=== PATIENT | male | born 1945 | race African-American/Black ===

== ENCOUNTER 2018-02-13 14:10 | Inpatient (IN) | payer OTHER ==
[2018-02-13 14:29] VITALS: BMI 25.0
--- NOTE | 2018-02-13 14:57 | PDOC ---
History of Present Illness <Ninoska June - Last Filed: 02/13/18 17:22> - History of Present Illness Initial Comments: 02/13/18 15:15 UPDATE: Do not inform any family member other than daughter Jolly Lara about diagnosis. The family does not know. 72 year old male with a hx of DM, HTN, HCV, PAD, Asthma, HLD presents to the hospital for 2 weeks of generalized weakness, dizziness, R hip pain and decreased appetite. He denies any inciting factors, only reporting that it has been progressively getting worse over the last several days to a point where he is unable to ambulate well. He was recently diagnosed with lung cancer in [place] ([place]) and had an operation to remove the tumor 1-2 years ago (but patient cannot remember exactly), which he was told was "stage 2". He was on chemotherapy which ended around 7-8 months ago. He states that 3 weeks ago, he was restarted on chemotherapy for recurrence of his cancer (unclear if recurred in lung or metastatic elsewhere). Denies chest pain, SOB, nausea, vomiting, diarrhea, fevers, chills. Does endorse a non-productive cough of 3 weeks duration. UPDATE: after speaking to oncologist and daughter, patient has stage 4 lung cancer on immunotherapy and not responding too well. Daughter does not want any family to know the true diagnosis. Last Hgb of patient was 9.8. Patient is not on neupogen. PCP: Dr. Beverly Surgeries: Lung cancer resection (unclear date, 1-2 years ago) Oncologist: Dr. Cox Smoking: currently smoking occasionally Drink: none Drugs: none Allergies: none Jolly Lara (Daughter)'s phone numbers: [phone] (home) and (cell) <Bari Franks - Last Filed: 02/13/18 18:13> - General Chief Complaint: Weakness Stated Complaint: WEAKNESS Past History <Ninoska June - Last Filed: 02/13/18 17:22> - Past Medical History Anemia: No Asthma: Yes Cancer: Yes (lung) Cardiac Disorders: No COPD: No HTN: Yes Liver Disease: Yes (HEP C) - Suicide/Smoking/Psychosocial Hx Smoking Status: Yes Smoking History: Current some day smoker Have you smoked in the past 12 months: Yes Number of Cigarettes Smoked Daily: 6 If you are a former smoker, when did you quit?: trying to quit w/ patch 3 months ago.. not successful Cigars Per Day: 10 Information on smoking cessation initiated: No 'Breaking Loose' booklet given: 08/29/16 Hx Alcohol Use: No Drug/Substance Use Hx: No Substance Use Type: None Hx Substance Use Treatment: No <Bari Franks - Last Filed: 02/13/18 18:13> - Past Medical History Allergies/Adverse Reactions: Allergies Allergy/AdvReac Type Severity Reaction Status Date / Time No Known Allergies Allergy Verified 08/29/16 19:33 Home Medications: Ambulatory Orders Atorvastatin Ca [Lipitor] 20 mg PO HS 02/13/18 Chlorpromazine [Thorazine -] 25 mg PO QID PRN 02/13/18 Clopidogrel Bisulfate [Clopidogrel] 75 mg PO DAILY 02/13/18 Lorazepam 2 mg PO HS PRN 02/13/18 Multivitamin [Poly-Vitamin] 1 each PO DAILY 02/13/18 Naproxen [Naprosyn -] 250 mg PO BID 02/13/18 Tamsulosin HCl 0.4 mg PO DAILY 02/13/18 metFORMIN HCL [Metformin HCl] 500 mg PO BID 02/13/18 Review of Systems - Review of Systems Constitutional: Yes: Loss of Appetite, Weakness, Unexplained wgt Loss. No: Fever Respiratory: Yes: Cough. No: Shortness of Breath Cardiac (ROS): No: Chest Pain ABD/GI: No: Diarrhea, Nausea, Abdominal cramping Musculoskeletal: Yes: Joint Pain <Bari Franks - Last Filed: 02/13/18 18:13> *Physical Exam - Vital Signs Last Vital Signs Temp Pulse Resp BP Pulse Ox 98.7 F 93 H 20 107/62 96 02/13/18 14:26 02/13/18 14:26 02/13/18 14:26 02/13/18 14:02/13/18 14:40 <Ninoska June - Last Filed: 02/13/18 17:22> - Vital Signs Last Vital Signs Temp Pulse Resp BP Pulse Ox 98.7 F 93 H 20 107/62 96 02/13/18 14:26 02/13/18 14:26 02/13/18 14:26 02/13/18 14:26 02/13/18 14:26 - Physical Exam Comments: 02/13/18 15:58 GENERAL: A&Ox3, no acute distress EYES: PERRLA, EOMI ENT: Moist mucus membranes NECK: No JVD LUNGS: CTA, no wheezes HEART: RRR, no murmurs ABDOMEN: Soft, nontender, BS present MUSCULOSKELETAL: No CVA Tenderness EXTREMITIES: 2+ pulses, no edema. NEUROLOGICAL: Cranial nerves II-XII intact. Muscle strength 5/5 bilaterally, sensation intact. <Bari Franks - Last Filed: 02/13/18 18:13> ED Treatment Course - LABORATORY CBC & Chemistry Diagram: 02/13/18 15:15 02/13/18 15:15 - ADDITIONAL ORDERS Additional order review: Laboratory Results 02/13/18 15:15 Sodium 134 L Potassium 3.7 Chloride 99 Carbon Dioxide 29 Anion Gap 6 L BUN 13 Creatinine 0.8 Creat Clearance w eGFR > 60 Random Glucose 129 H Calcium 8.5 Magnesium 1.7 L Total Bilirubin 0.5 D AST 31 D ALT 23 D Alkaline Phosphatase 290 H Total Protein 6.8 Albumin 2.5 L D TSH 1.06 02/13/18 15:15 RBC 3.06 L D MCV 81.0 MCHC 32.3 RDW 18.9 H MPV 6.9 L Neutrophils % 68.2 D Lymphocytes % 16.5 D Monocytes % 12.8 H Eosinophils % 1.1 Basophils % 1.4 <Ninoska June - Last Filed: 02/13/18 17:22> - LABORATORY CBC & Chemistry Diagram: 02/13/18 15:15 02/13/18 15:15 <Bari Franks - Last Filed: 02/13/18 18:13> Medical Decision Making - Medical Decision Making 02/13/18 17:22 stage 4 lung cancer w liver mets on immunotherapy currently -weakness, anemia,requires blood transfusion -case dscussed w his oncologist <Ninoska June - Last Filed: 02/13/18 17:22> - Medical Decision Making 02/13/18 16:52 72 year old male with a hx of DM, HTN, HCV, PAD, Asthma, HLD presents with 3 weeks of weakness, loss of appetite Assessment: differential includes side effects of chemo, anemia, hypothyroid, CT Plan: CBC - new anemia 8.0 CMP UA EKG - NSR Qtc 464 TSH Trop FOBT 02/13/18 17:35 -Called Dr. Alyce Cox, the patient's oncologist at -Was informed that patient and majority of family are UNAWARE of the fact that patient has stage IV multilobar non-small cell lung cancer and is undergoing immunotherapy (not chemotherapy). Patient's last Hgb a couple of weeks ago was 9.8. -called patient's daughter, who is the only family member aware of current situation. Repeated that she does not want rest of family to know. Agreeable to plan for transfusing 1 U PRBCs. Stated that he had an appointment for a PET scan and later lung doctor appointment this week -patient refused fecal occult blood testing -Patient will likely need evaluation as an inpatient and placement at a facility -will admit inpatient -will call daughter and inform her -daughter's phone numbers: [phone] (home) and [phone] (cell) 02/13/18 17:59 -discussed case w/ Dr. Wood -Will admit patient and inform daughter <Bari Franks - Last Filed: 02/13/18 18:13> *DC/Admit/Observation/Transfer <Ninoska June - Last Filed: 02/13/18 17:22> - Discharge Dispostion Decision to Admit order: Yes <Bari Franks - Last Filed: 02/13/18 18:13> Diagnosis at time of Disposition: Weakness
[2018-02-13 16:06] LABS: BASO % 1.4 % (0-2.0); EOS % 1.1 % (0-4.5); HEMATOCRIT 24.8 % (35.4-49); LYMPH % 16.5 % (8-40); MCH 26.2 pg (25.7-33.7); MCHC 32.3 g/dl (32.0-35.9); MEAN PLT VOLUME 6.9 fl (7.5-11.1); MONO % 12.8 % (3.8-10.2); NEUT % 68.2 % (42.8-82.8); PLATELET COUNT 327 K/MM3 (134-434); RBC 3.06 M/mm3 (4.00-5.60); RDW 18.9 % (11.9-15.9); WHITE BLOOD COUNT 5.4 K/mm3 (4.0-10.0)
[2018-02-13 16:17] LABS: ALBUMIN 2.5 g/dl (3.4-5.0); ANION GAP 6 (8-16); BILIRUBIN,TOTAL 0.5 mg/dL (0.2-1.0); BLOOD UREA NITROGEN 13 mg/dL (7-18); CALCIUM 8.5 mg/dL (8.5-10.1); CHLORIDE 99 mmol/L (98-107); CO2 29 mmol/L (21-32); CREATININE 0.8 mg/dL (0.7-1.3); GLUCOSE,RANDOM 129 mg/dL (74-106); MAGNESIUM 1.7 mg/dL (1.8-2.4); POTASSIUM 3.7 mmol/L (3.5-5.1); SGOT/AST 31 U/L (15-37); SODIUM 134 mmol/L (136-145); TOT PROT 6.8 g/dl (6.4-8.2)
--- NOTE | 2018-02-13 16:21 | EKG ---
Test Reason : Blood Pressure : / mmHG Vent. Rate : 087 BPM Atrial Rate : 087 BPM P-R Int : 162 ms QRS Dur : 082 ms QT Int : 386 ms P-R-T Axes : 060 047 063 degrees QTc Int : 464 ms NORMAL SINUS RHYTHM CANNOT RULE OUT ANTERIOR INFARCT , AGE UNDETERMINED ABNORMAL ECG WHEN COMPARED WITH ECG OF 29-AUG-2016 20:06, NONSPECIFIC T WAVE ABNORMALITY NOW EVIDENT IN LATERAL LEADS Confirmed by EDELMIRA WILKES MD ([id number]) on 02/13/2018 4:20:56 PM Referred By: Confirmed By:EDELMIRA WILKES MD
[2018-02-13 16:58] LABS: ALK PHOS 290 U/L (45-117)
[2018-02-13 17:12] LABS: SGPT/ALT 23 U/L (12-78)
--- NOTE | 2018-02-13 17:27 | PDOC ---
Attending Attestation - [facility] HPI: The patient is a year old male, with a significant past medical history of DM, HTN, HCV, PAD, Asthma, HLD, and dementia, who presents to the emergency department with, 2 weeks of generalized weakness, decreased appetite, and inability to walk. The patient was diagnosed with lung cancer at [place] in [place]. He was given a round of chemotherapy 7-8 months ago which has since returned. He is currently receiving immunotherapy. His next appointment is Tuesday. As per patients oncologist, he is unaware of his prognosis only his daughter is aware. He is not responding well to his immunotherapy. He denies any recent fevers, chills, headache or dizziness. He denies any recent nausea, vomit, diarrhea or constipation. He denies any recent chest pain or shortness of breath. He denies any recent dysuria, frequency, urgency or hematuria. Allergies: NKA Social History: Occasional smoker. Denies EtOH use and recreational drug use. Primary Care Physician: Dr. Beverly - Physicial Exam PE: 02/13/18 20:23 GENERAL: Well-appearing, well-nourished. No apparent distress. HEENT: Normocephalic, atraumatic. PERRL, EOM intact. CARDIOVASCULAR: Normal S1, S2. Regular rate and rhythm. PULMONARY: Clear to auscultation bilaterally. ABDOMEN: Soft, non-distended, non-tender. EXTREMITIES: Normal ROM in all four extremities. No gross deformities. SKIN: Warm, dry. No rash NEUROLOGICAL: Conversant. Alert, awake, appropriate. Cranial nerves 2-12 intact. No deficits to light touch and temperature in face, upper extremities and lower extremities. No motor deficits in the in face, upper extremities and lower extremities. Normoreflexic in the upper and lower extremities. Normal speech. Toes are down-going bilaterally.No focal neurological deficits. <Erasto Waite - Last Filed: 02/13/18 20:23> - Resident Resident Name: Bari Franks - ED Attending Attestation I have performed the following: I have examined & evaluated the patient, The case was reviewed & discussed with the resident, I agree w/resident's findings & plan, Exceptions are as noted - HPI HPI: 02/13/18 17:26 72 yo male w stae 4 lung ca w liver mets - Medical Decision Making 02/13/18 22:56 IMP Anemia,pt refused rectal,stool guiac -c/o weakness, admit for trasnfusion Stage 4 lung ca w liver mets( only the daughter knows-the pt is not aware,he thinks he has stage 2 lung ca) case discussed w oncologist-pt doing poorly on immunotherapy <Ninoska June - Last Filed: 02/13/18 22:58> Attestations - Attestations 02/13/18 18:30 Documentation prepared by Erasto Waite, acting as medical and health services manager for Ninoska June MD. <Erasto Waite - Last Filed: 02/13/18 20:23>
[2018-02-13] MEDS ORDERED: SODIUM CHLORIDE 500 ML IV STA (18:25)
[2018-02-13] MEDS ORDERED: PATIENT'S OWN MEDICATION (NON-FORMULARY) (Lorazepam [Lorazepam] 2 MG) PO PRN (20:24)
--- NOTE | 2018-02-13 20:24 | HP ---
Admitting History and Physical - Primary Care Physician PCP: Diane Wood - Admission History of Present Illness: 72 year old male, with a significant past medical history of DM, HTN, HCV, PAD, Asthma, HLD, and dementia, who presents to the emergency department with, 2 weeks of generalized weakness, decreased appetite, and inability to walk. The patient was diagnosed with lung cancer at [place] in [place]. He was given a round of chemotherapy 7-8 months ago which has since returned. He is currently receiving immunotherapy. His next appointment is Tuesday. As per patients oncologist, he is unaware of his prognosis only his daughter is aware. He is not responding well to his immunotherapy. He denies any recent fevers, chills, headache or dizziness. He denies any recent nausea, vomit, diarrhea or constipation. He denies any recent chest pain or shortness of breath. - Past Medical History Cardiovascular: Yes: HTN, Hyperlipdemia Pulmonary: Yes: Asthma, Cancer Endocrine: Yes: Diabetes Mellitus - Smoking History Smoking history: Current some day smoker Have you smoked in the past 12 months: Yes Aproximately how many cigarettes per day: 6 If you are a former smoker, when did you quit?: trying to quit w/ patch 3 months ago.. not successful - Alcohol/Substance Use Hx Alcohol Use: No Home Medications - Allergies Allergies/Adverse Reactions: Allergies Allergy/AdvReac Type Severity Reaction Status Date / Time No Known Allergies Allergy Verified 08/29/16 19:33 - Home Medications Home Medications: Ambulatory Orders Atorvastatin Ca [Lipitor] 20 mg PO HS 02/13/18 Chlorpromazine [Thorazine -] 25 mg PO QID PRN 02/13/18 Clopidogrel Bisulfate [Clopidogrel] 75 mg PO DAILY 02/13/18 Lorazepam 2 mg PO HS PRN 02/13/18 Multivitamin [Poly-Vitamin] 1 each PO DAILY 02/13/18 Naproxen [Naprosyn -] 250 mg PO BID 02/13/18 Tamsulosin HCl 0.4 mg PO DAILY 02/13/18 Trazodone HCl 100 mg PO HS 02/13/18 metFORMIN HCL [Metformin HCl] 500 mg PO BID 02/13/18 Physical Examination Vital Signs: Vital Signs Temperature 98.1 F 02/13/18 19:46 Pulse Rate 99 H 02/13/18 19:46 Respiratory Rate 17 02/13/18 19:46 Blood Pressure 166/86 02/13/18 19:46 O2 Sat by Pulse Oximetry (%) 97 02/13/18 19:46 Constitutional: Yes: No Distress HENT: Yes: Atraumatic Neck: Yes: Supple Cardiovascular: Yes: Regular Rate and Rhythm Respiratory: Yes: CTA Bilaterally Gastrointestinal: Yes: Normal Bowel Sounds Extremities: Yes: WNL Edema: No Peripheral Pulses WNL: Yes Neurological: Yes: Alert, Oriented Labs: CBC, BMP 02/13/18 15:15 02/13/18 15:15 Problem List - Problems (1) Weakness Assessment/Plan: h/o lung ca weakness ater treatment also anemic will ransfuse prbc Code(s): R53.1 - WEAKNESS (2) Hip pain Assessment/Plan: prn pain meds Code(s): M25.559 - PAIN IN UNSPECIFIED HIP (3) Lung cancer Assessment/Plan: h/o s/p chemo will get onc consult pt has doctors in [place] Code(s): C34.90 - MALIGNANT NEOPLASM OF UNSP PART OF UNSP BRONCHUS OR LUNG Assessment/Plan Laboratory Tests 02/13/18 02/13/18 02/13/18 15:15 15:15 15:15 WBC 5.4 RBC 3.06 L D Hgb 8.0 L D Hct 24.8 L D MCV 81.0 MCH 26.2 D MCHC 32.3 RDW 18.9 H Plt Count 327 D MPV 6.9 L Absolute Neuts (auto) 3.7 Neutrophils % 68.2 D Lymphocytes % 16.5 D Monocytes % 12.8 H Eosinophils % 1.1 Basophils % 1.4 Nucleated RBC % 0 Sodium 134 L Potassium 3.7 Chloride 99 Carbon Dioxide 29 Anion Gap 6 L BUN 13 Creatinine 0.8 Creat Clearance w eGFR > 60 Random Glucose 129 H Calcium 8.5 Magnesium 1.7 L Total Bilirubin 0.5 D AST 31 D ALT 23 D Alkaline Phosphatase 290 H Creatine Kinase 46 Troponin I 0.03 D Total Protein 6.8 Albumin 2.5 L D TSH 1.06 Blood Type Antibody Screen Crossmatch 02/13/18 19:00 WBC RBC Hgb Hct MCV MCH MCHC RDW Plt Count MPV Absolute Neuts (auto) Neutrophils % Lymphocytes % Monocytes % Eosinophils % Basophils % Nucleated RBC % Sodium Potassium Chloride Carbon Dioxide Anion Gap BUN Creatinine Creat Clearance w eGFR Random Glucose Calcium Magnesium Total Bilirubin AST ALT Alkaline Phosphatase Creatine Kinase Troponin I Total Protein Albumin TSH Blood Type O POSITIVE Antibody Screen Negative Crossmatch See Detail Active Medications Generic Name Dose Route Start Last Admin Trade Name Freq PRN Reason Stop Dose Admin Acetaminophen 650 mg 02/13/18 20:25 02/14/18 19:57 Tylenol - PO 650 mg Q6H PRN Administration FEVER Atorvastatin Calcium 20 mg 02/13/18 22:00 02/14/18 21:23 Lipitor - PO 20 mg HS TATIANA Administration Chlorpromazine HCl 25 mg 02/13/18 20:24 02/13/18 21:55 Thorazine - PO 25 mg Q6H PRN Administration INSOMNIA Clopidogrel Bisulfate 75 mg 02/14/18 10:00 02/14/18 10:37 Plavix - PO 75 mg DAILY TATIANA Administration Docusate Sodium 100 mg 02/13/18 20:25 Colace - PO BID PRN CONSTIPATION Lorazepam 2 mg 02/13/18 20:38 02/13/18 21:43 Ativan - PO 2 mg HS PRN Administration INSOMNIA Metformin HCl 500 mg 02/14/18 07:00 02/14/18 17:32 Glucophage - PO Not Given BIDI [facility] Multivitamins/Minerals/Vitamin C 1 tab 02/14/18 10:00 02/14/18 10:37 Tab-A-Vit - PO 1 tab DAILY TATIANA Administration Oxycodone HCl 10 mg 02/13/18 20:25 02/14/18 19:58 Roxicodone - PO 10 mg Q6H PRN Administration PAIN Tamsulosin HCl 0.4 mg 02/14/18 10:00 02/14/18 10:37 Flomax - PO 0.4 mg DAILY TATIANA Administration
[2018-02-13] MEDS ORDERED: DOCUSATE SODIUM 100 MG CAPSULE (FP) PO PRN (20:25)
[2018-02-13 20:48] LABS: URINE APPEARANCE CLEAR; URINE BILIRUBIN NEGATIVE (<2.0 mg/dL); URINE BLOOD NEGATIVE (NEGATIVE); URINE COLOR LTYELLOW; URINE GLUCOSE (UA) NEGATIVE (NEGATIVE); URINE KETONE NEGATIVE (NEGATIVE); URINE LEUK ESTERASE NEGATIVE (NEGATIVE); URINE NITRITE NEGATIVE (NEGATIVE); URINE PROTEIN NEGATIVE (NEGATIVE); URINE UROBILINOGEN 4.0 E.U/dl mg/dL (0.2-1.0)
[2018-02-13] MEDS: ATORVASTATIN CA 20 MG TABLET (FP) PO SCH (21:42)
[2018-02-13] MEDS: LORazepam 1 MG TABLET PO PRN (21:43)
[2018-02-13] MEDS: ACETAMINOPHEN 325 MG TABLET (FP) PO PRN (21:43)
[2018-02-13] MEDS: oxyCODONE HCL 5 MG TABLET PO PRN (21:45)
[2018-02-13] MEDS: chlorproMAZINE HCL 25 MG TABLET PO PRN (21:55)
[2018-02-14] MEDS: metFORMIN HCL 500 MG TABLET (FP) PO SCH ×2 (08:19→17:32)
[2018-02-14] MEDS ORDERED: PATIENT'S OWN MEDICATION (NON-FORMULARY) (Multivitamin [Poly-Vitamin] 1 EACH) PO SCH (10:00)
[2018-02-14] MEDS: MULTIVITAMINS (DAILY MVI) TABLET (FP) PO SCH (10:37)
[2018-02-14] MEDS: TAMSULOSIN HCL 0.4 MG CAP.ER.24H (FP) PO SCH (10:37)
[2018-02-14] MEDS: CLOPIDOGREL BISULFATE 75 MG TABLET (FP) PO SCH (10:37)
[2018-02-14] MEDS: oxyCODONE HCL 5 MG TABLET PO PRN ×2 (13:23→19:58)
[2018-02-14] MEDS: ACETAMINOPHEN 325 MG TABLET (FP) PO PRN ×2 (13:24→19:57)
[2018-02-14 13:28] LABS: BASO % 1.1 % (0-2.0); EOS % 2.8 % (0-4.5); HEMATOCRIT 27.1 % (35.4-49); HEMOGLOBIN 8.6 GM/dL (11.7-16.9); LYMPH % 15.8 % (8-40); MCH 25.8 pg (25.7-33.7); MCHC 31.7 g/dl (32.0-35.9); MEAN CELL VOLUME 81.4 fl (80-96); MEAN PLT VOLUME 6.5 fl (7.5-11.1); NEUT % 68.3 % (42.8-82.8); PLATELET COUNT 303 K/MM3 (134-434); RBC 3.33 M/mm3 (4.00-5.60); RDW 18.8 % (11.9-15.9); WHITE BLOOD COUNT 6.6 K/mm3 (4.0-10.0)
--- NOTE | 2018-02-14 14:44 | PN ---
Progress Note, Physician History of Present Illness: stable - Current Medication List Current Medications: Active Medications Acetaminophen (Tylenol -) 650 mg PO Q6H PRN PRN Reason: FEVER Last Admin: 02/14/18 13:24 Dose: 650 mg Atorvastatin Calcium (Lipitor -) 20 mg PO HS [facility] Last Admin: 02/13/18 21:42 Dose: 20 mg Chlorpromazine HCl (Thorazine -) 25 mg PO Q6H PRN PRN Reason: INSOMNIA Last Admin: 02/13/18 21:55 Dose: 25 mg Clopidogrel Bisulfate (Plavix -) 75 mg PO DAILY [facility] Last Admin: 02/14/18 10:37 Dose: 75 mg Docusate Sodium (Colace -) 100 mg PO BID PRN PRN Reason: CONSTIPATION Lorazepam (Ativan -) 2 mg PO HS PRN PRN Reason: INSOMNIA Last Admin: 02/13/18 21:43 Dose: 2 mg Metformin HCl (Glucophage -) 500 mg PO BIDI [facility] Last Admin: 02/14/18 08:19 Dose: Not Given Multivitamins/Minerals/Vitamin C (Tab-A-Vit -) 1 tab PO DAILY [facility] Last Admin: 02/14/18 10:37 Dose: 1 tab Oxycodone HCl (Roxicodone -) 10 mg PO Q6H PRN PRN Reason: PAIN Last Admin: 02/14/18 13:23 Dose: 10 mg Tamsulosin HCl (Flomax -) 0.4 mg PO DAILY [facility] Last Admin: 02/14/18 10:37 Dose: 0.4 mg - Objective Vital Signs: Vital Signs Temperature 99.1 F 02/14/18 10:37 Pulse Rate 79 02/14/18 10:37 Respiratory Rate 18 02/14/18 10:37 Blood Pressure 130/74 02/14/18 10:37 O2 Sat by Pulse Oximetry (%) 93 L 02/13/18 23:27 Constitutional: Yes: No Distress HENT: Yes: Atraumatic Neck: Yes: Supple Cardiovascular: Yes: Regular Rate and Rhythm Respiratory: Yes: CTA Bilaterally Gastrointestinal: Yes: Normal Bowel Sounds Extremities: Yes: WNL Edema: No Neurological: Yes: Alert, Oriented Labs: CBC, BMP 02/14/18 13:15 02/13/18 15:15 Problem List - Problems (1) Weakness Assessment/Plan: h/o lung ca anemic will transfuse prbc Code(s): R53.1 - WEAKNESS (2) Hip pain Assessment/Plan: prn pain meds Code(s): M25.559 - PAIN IN UNSPECIFIED HIP (3) Lung cancer Assessment/Plan: h/o s/p chemo will get onc consult pt has doctors in [place] Code(s): C34.90 - MALIGNANT NEOPLASM OF UNSP PART OF UNSP BRONCHUS OR LUNG (4) Diabetes Assessment/Plan: on meds Code(s): E11.9 - TYPE 2 DIABETES MELLITUS WITHOUT COMPLICATIONS (5) HTN (hypertension) Code(s): I10 - ESSENTIAL (PRIMARY) HYPERTENSION (6) Lung infiltrate Assessment/Plan: on abx per id Code(s): R91.8 - OTHER NONSPECIFIC ABNORMAL FINDING OF LUNG FIELD Assessment/Plan dr oconnor covering until
--- NOTE | 2018-02-14 15:57 | CONSULT ---
Consult Consult Specialty:: Oncology - History of Present Illness History of Present Illness: As per ER Note: is a 72 year old M with past medical history of DM, HTN, HCV, PAD, Asthma, HLD, and dementia, who presents to the emergency department with, 2 weeks of generalized weakness, decreased appetite, and inability to walk. The patient was diagnosed with lung cancer at [place] in [place]. He was given a round of chemotherapy 7-8 months ago which has since returned. He is currently receiving immunotherapy. His next appointment is Tuesday. As per patients oncologist, he is unaware of his prognosis only his daughter is aware. He is not responding well to his immunotherapy. He denies any recent fevers, chills, headache or dizziness. He denies any recent nausea, vomit, diarrhea or constipation. He denies any recent chest pain or shortness of breath. He denies any recent dysuria, frequency, urgency or hematuria. Allergies: NKA Social History: Occasional smoker. Denies EtOH use and recreational drug use. Primary Care Physician: Dr. Beverly Oncologist in [place], [place]-- ?name, care under him, pt visiting family here. Now admitted with FTT - Past Medical History Cardio/Vascular: Yes: HTN, Hyperlipdemia Pulmonary: Yes: Asthma, Cancer Endocrine: Yes: Diabetes Mellitus - Alcohol/Substance Use Hx Alcohol Use: No - Smoking History Smoking history: Current some day smoker Have you smoked in the past 12 months: Yes Aproximately how many cigarettes per day: 6 If you are a former smoker, when did you quit?: trying to quit w/ patch 3 months ago.. not successful Home Medications - Allergies Allergies/Adverse Reactions: Allergies Allergy/AdvReac Type Severity Reaction Status Date / Time No Known Allergies Allergy Verified 08/29/16 19:33 - Home Medications Home Medications: Ambulatory Orders Atorvastatin Ca [Lipitor] 20 mg PO HS 02/13/18 Chlorpromazine [Thorazine -] 25 mg PO QID PRN 02/13/18 Clopidogrel Bisulfate [Clopidogrel] 75 mg PO DAILY 02/13/18 Lorazepam 2 mg PO HS PRN 02/13/18 Multivitamin [Poly-Vitamin] 1 each PO DAILY 02/13/18 Naproxen [Naprosyn -] 250 mg PO BID 02/13/18 Tamsulosin HCl 0.4 mg PO DAILY 02/13/18 Trazodone HCl 100 mg PO HS 02/13/18 metFORMIN HCL [Metformin HCl] 500 mg PO BID 02/13/18 Physical Exam Vital Signs: Vital Signs Temperature 99.1 F 02/14/18 10:37 Pulse Rate 79 02/14/18 10:37 Respiratory Rate 18 02/14/18 10:37 Blood Pressure 130/74 02/14/18 10:37 O2 Sat by Pulse Oximetry (%) 93 L 02/13/18 23:27 Constitutional: Yes: Calm, Cachectic Eyes: Yes: Conjunctiva Clear HENT: Yes: Atraumatic, Normocephalic Neck: Yes: Supple, Trachea Midline Cardiovascular: Yes: Regular Rate and Rhythm Respiratory: Yes: Regular, CTA Bilaterally Gastrointestinal: Yes: Normal Bowel Sounds, Soft Musculoskeletal: Yes: WNL Extremities: Yes: WNL Edema: No Labs: CBC, BMP 02/14/18 13:15 02/13/18 15:15 Imaging - Results X-ray: Report Reviewed Assessment/Plan [facility] requested records from [place]. ?not responding to Immunotherapy. need to speak to daughter to obtain more information--will call order CT c/a/p -- to know the extent of disease. Pulm c/s-- ?drainage of Pleural effusion Fevers- ?PNA/Pleural effusion-- ID c/s. agree with PRBCs further recs pending imaging studies/reviewing outside recs
--- NOTE | 2018-02-14 16:22 | CON.ID ---
Consult Consult Specialty:: infectious diseases Referred by:: Dr asif Reason for Consultation:: weakness,fever - History of Present Illness Chief Complaint: sob,weakness History of Present Illness: 72 year old M with past medical history of DM, HTN, HCV, PAD, Asthma, HLD, and dementia, who presents to the emergency department with, 2 weeks of generalized weakness, decreased appetite, and inability to walk. The patient was diagnosed with lung cancer at [facility] in [place]. He was given a round of chemotherapy 7-8 months ago which has since returned. He is currently receiving immunotherapy. His next appointment is Tuesday. As per patients oncologist, he is unaware of his prognosis only his daughter is aware. He is not responding well to his immunotherapy. He denies any recent fevers, chills, headache or dizziness. He denies any recent nausea, vomit, diarrhea or constipation. He denies any recent chest pain or shortness of breath. He denies any recent dysuria, frequency, urgency or hematuria. currently patient is weak and feels tired he has received chemo - Past Medical History Cardio/Vascular: Yes: HTN, Hyperlipdemia Pulmonary: Yes: Asthma, Cancer Endocrine: Yes: Diabetes Mellitus - Alcohol/Substance Use Hx Alcohol Use: No - Smoking History Smoking history: Current some day smoker Have you smoked in the past 12 months: Yes Aproximately how many cigarettes per day: 6 If you are a former smoker, when did you quit?: trying to quit w/ patch 3 months ago.. not successful Home Medications - Allergies Allergies/Adverse Reactions: Allergies Allergy/AdvReac Type Severity Reaction Status Date / Time No Known Allergies Allergy Verified 08/29/16 19:33 - Home Medications Home Medications: Ambulatory Orders Atorvastatin Ca [Lipitor] 20 mg PO HS 02/13/18 Chlorpromazine [Thorazine -] 25 mg PO QID PRN 02/13/18 Clopidogrel Bisulfate [Clopidogrel] 75 mg PO DAILY 02/13/18 Lorazepam 2 mg PO HS PRN 02/13/18 Multivitamin [Poly-Vitamin] 1 each PO DAILY 02/13/18 Naproxen [Naprosyn -] 250 mg PO BID 02/13/18 Tamsulosin HCl 0.4 mg PO DAILY 02/13/18 Trazodone HCl 100 mg PO HS 02/13/18 metFORMIN HCL [Metformin HCl] 500 mg PO BID 02/13/18 Review of Systems - Review of Systems Constitutional: reports: No Symptoms, Loss of Appetite, Weakness Eyes: reports: No Symptoms HENT: reports: No Symptoms Neck: reports: No Symptoms Cardiovascular: reports: No Symptoms Respiratory: reports: SOB, SOB on Exertion Gastrointestinal: reports: No Symptoms Genitourinary: reports: No Symptoms Musculoskeletal: reports: No Symptoms Integumentary: reports: No Symptoms Neurological: reports: No Symptoms Endocrine: reports: No Symptoms Hematology/Lymphatic: reports: No Symptoms Psychiatric: reports: No Symptoms Physical Exam Vital Signs: Vital Signs Temperature 99.1 F 02/14/18 10:37 Pulse Rate 79 02/14/18 10:37 Respiratory Rate 18 02/14/18 10:37 Blood Pressure 130/74 02/14/18 10:37 O2 Sat by Pulse Oximetry (%) 93 L 02/13/18 23:27 Constitutional: Yes: No Distress, Calm, Thin, Other Eyes: Yes: Conjunctiva Clear Neck: Yes: Supple, Trachea Midline Cardiovascular: Yes: Regular Rate and Rhythm Respiratory: Yes: Regular, Poor Air Entry, Other (absent air entry on the left side) Gastrointestinal: Yes: Normal Bowel Sounds, Soft Musculoskeletal: Yes: WNL Extremities: Yes: WNL Neurological: Yes: Alert, Oriented Psychiatric: Yes: Alert, Oriented Labs: CBC, BMP 02/14/18 13:15 02/13/18 15:15 Imaging - Results Chest X-ray: Report Reviewed, Image Reviewed X-ray: Report Reviewed, Image Reviewed Assessment/Plan Problem List - Problems (1) Weakness Code(s): R53.1 - WEAKNESS (2) Hip pain Code(s): M25.559 - PAIN IN UNSPECIFIED HIP (3) Lung cancer Code(s): C34.90 - MALIGNANT NEOPLASM OF UNSP PART OF UNSP BRONCHUS OR LUNG 4 fever patient with advance lung ca on chemo coming to the hospital with weakness , mainly and noticed to ahve fever currently afebrile says he is feeling better plan will see how patient does tomorrow if fevers joseph tart abx also patient needs imaging studies and tapping to see what type of effusion it is
[2018-02-14] MEDS: ATORVASTATIN CA 20 MG TABLET (FP) PO SCH (21:23)
[2018-02-14 21:59] LABS: BASO % 1.1 % (0-2.0); EOS % 2.9 % (0-4.5); HEMATOCRIT 27.5 % (35.4-49); HEMOGLOBIN 8.9 GM/dL (11.7-16.9); LYMPH % 18.1 % (8-40); MCH 26.5 pg (25.7-33.7); MCHC 32.4 g/dl (32.0-35.9); MEAN CELL VOLUME 81.8 fl (80-96); MEAN PLT VOLUME 6.7 fl (7.5-11.1); MONO % 12.9 % (3.8-10.2); PLATELET COUNT 305 K/MM3 (134-434); RBC 3.36 M/mm3 (4.00-5.60); RDW 18.5 % (11.9-15.9); WHITE BLOOD COUNT 5.9 K/mm3 (4.0-10.0)
[2018-02-14] MEDS ORDERED: PT OWN MED DRAWER 7, Y5N ONE (22:33)
[2018-02-14] MEDS: chlorproMAZINE HCL 25 MG TABLET PO PRN (22:36)
[2018-02-15] MEDS: ACETAMINOPHEN 325 MG TABLET (FP) PO PRN ×4 (02:20→21:56)
[2018-02-15] MEDS: oxyCODONE HCL 5 MG TABLET PO PRN ×4 (02:21→21:50)
[2018-02-15] MEDS: metFORMIN HCL 500 MG TABLET (FP) PO SCH ×2 (06:11→16:04)
[2018-02-15 08:01] LABS: BASO % 1.2 % (0-2.0); EOS % 3.2 % (0-4.5); HEMATOCRIT 27.8 % (35.4-49); HEMOGLOBIN 9.2 GM/dL (11.7-16.9); LYMPH % 17.3 % (8-40); MCH 26.8 pg (25.7-33.7); MCHC 33.1 g/dl (32.0-35.9); MEAN CELL VOLUME 80.9 fl (80-96); MONO % 11.9 % (3.8-10.2); NEUT % 66.4 % (42.8-82.8); PLATELET COUNT 317 K/MM3 (134-434); RBC 3.43 M/mm3 (4.00-5.60); RDW 18.5 % (11.9-15.9); WHITE BLOOD COUNT 5.9 K/mm3 (4.0-10.0)
[2018-02-15 08:24] LABS: CHLORIDE 98 mmol/L (98-107); POTASSIUM 3.8 mmol/L (3.5-5.1); SODIUM 135 mmol/L (136-145)
[2018-02-15 08:31] LABS: ALBUMIN 2.5 g/dl (3.4-5.0); ALK PHOS 270 U/L (45-117); ANION GAP 10 (8-16); BLOOD UREA NITROGEN 11 mg/dL (7-18); CALCIUM 8.3 mg/dL (8.5-10.1); CO2 27 mmol/L (21-32); CREATININE 0.6 mg/dL (0.7-1.3); GLUCOSE,RANDOM 94 mg/dL (74-106); SGOT/AST 28 U/L (15-37); SGPT/ALT 20 U/L (12-78); TOT PROT 6.8 g/dl (6.4-8.2)
--- NOTE | 2018-02-15 09:48 | PN ---
Progress Note (short form) - Note Progress Note: Last Vital Signs Constitutional: Yes: Calm, Cachectic Eyes: Yes: Conjunctiva Clear HENT: Yes: Atraumatic, Normocephalic Neck: Yes: Supple, Trachea Midline Cardiovascular: Yes: Regular Rate and Rhythm Respiratory: Yes: Regular, CTA Bilaterally Gastrointestinal: Yes: Normal Bowel Sounds, Soft Musculoskeletal: Yes: WNL Extremities: Yes: WNL Edema: No Temp Pulse Resp BP Pulse Ox 99.8 F H 94 H 18 117/67 93 L 02/15/18 06:10 02/15/18 06:10 02/15/18 06:10 02/15/18 06:10 02/14/18 21:00 CBC, BMP 02/15/18 06:15 02/15/18 06:15 Current Medications Generic Name Dose Route Start Last Admin Trade Name Freq PRN Reason Stop Dose Admin Acetaminophen 650 mg 02/13/18 20:25 02/15/18 02:20 Tylenol - PO 650 mg Q6H PRN Administration FEVER Atorvastatin Calcium 20 mg 02/13/18 22:00 02/14/18 21:23 Lipitor - PO 20 mg HS [facility]NA Administration Chlorpromazine HCl 25 mg 02/13/18 20:24 02/14/18 22:36 Thorazine - PO 25 mg Q6H PRN Administration INSOMNIA Clopidogrel Bisulfate 75 mg 02/14/18 10:00 02/14/18 10:37 Plavix - PO 75 mg DAILY [facility] Administration Docusate Sodium 100 mg 02/13/18 20:25 Colace - PO BID PRN CONSTIPATION Lorazepam 2 mg 02/13/18 20:38 02/13/18 21:43 Ativan - PO 2 mg HS PRN Administration INSOMNIA Metformin HCl 500 mg 02/14/18 07:00 02/15/18 06:11 Glucophage - PO 500 mg BIDI [facility] Administration Multivitamins/Minerals/Vitamin C 1 tab 02/14/18 10:00 02/14/18 10:37 Tab-A-Vit - PO 1 tab DAILY [facility] Administration Oxycodone HCl 10 mg 02/13/18 20:25 02/15/18 02:21 Roxicodone - PO 10 mg Q6H PRN Administration PAIN Tamsulosin HCl 0.4 mg 02/14/18 10:00 02/14/18 10:37 Flomax - PO 0.4 mg DAILY [facility] Administration s/p PRBCs CT scans not done yet pulm id PT eval
[2018-02-15] MEDS: MULTIVITAMINS (DAILY MVI) TABLET (FP) PO SCH (10:08)
[2018-02-15] MEDS: TAMSULOSIN HCL 0.4 MG CAP.ER.24H (FP) PO SCH (10:08)
[2018-02-15] MEDS: CLOPIDOGREL BISULFATE 75 MG TABLET (FP) PO SCH (10:08)
[2018-02-15] MEDS ORDERED: hydrOXYzine HCL 25 MG TABLET (FP) PO ONE (13:45)
--- NOTE | 2018-02-15 14:02 | PN ---
Progress Note (short form) - Note Progress Note: PULMONARY CONSULTATION DICTATED 02/15/18 IMP ADVANCED LUNG CA S/P RT/CHEMO LEFT PLEURAL EFFUSION LIKELY MALIGNANT WEAKNESS/WT LOSS FEVER HCVD PVD HTN DM COPD/ASTHMA ELADIO O2 INHALED BRONCHODILATORS PRN CULTURES ABX PER ID CHEST CT DR ONEAL Problem List - Problems (1) Pleural effusion Code(s): J90 - PLEURAL EFFUSION, NOT ELSEWHERE CLASSIFIED (2) Lung cancer Code(s): C34.90 - MALIGNANT NEOPLASM OF UNSP PART OF UNSP BRONCHUS OR LUNG (3) Weakness Code(s): R53.1 - WEAKNESS (4) Diabetes Code(s): E11.9 - TYPE 2 DIABETES MELLITUS WITHOUT COMPLICATIONS (5) HTN (hypertension) Code(s): I10 - ESSENTIAL (PRIMARY) HYPERTENSION
[2018-02-15] MEDS ORDERED: ALBUTEROL SO4 2.5/IPRATROPIUM 0.5 INH SOL 3 ML VIAL.NEB. NEB PRN (14:07)
--- NOTE | 2018-02-15 14:11 | PN ---
Progress Note, Physician History of Present Illness: patient with low grade fever no complaints - Current Medication List Current Medications: Active Medications Acetaminophen (Tylenol -) 650 mg PO Q6H PRN PRN Reason: FEVER Last Admin: 02/15/18 10:08 Dose: 650 mg Albuterol/Ipratropium (Duoneb -) 1 amp NEB Q4H PRN PRN Reason: SHORTNESS OF BREATH Atorvastatin Calcium (Lipitor -) 20 mg PO HS [facility] Last Admin: 02/14/18 21:23 Dose: 20 mg Chlorpromazine HCl (Thorazine -) 25 mg PO Q6H PRN PRN Reason: INSOMNIA Last Admin: 02/14/18 22:36 Dose: 25 mg Clopidogrel Bisulfate (Plavix -) 75 mg PO DAILY [facility] Last Admin: 02/15/18 10:08 Dose: 75 mg Docusate Sodium (Colace -) 100 mg PO BID PRN PRN Reason: CONSTIPATION Piperacillin Sod/Tazobactam (Sod 3.375 gm/ Dextrose) 50 mls @ 100 mls/hr IVPB Q8H-IV [facility]; Protocol Lorazepam (Ativan -) 2 mg PO HS PRN PRN Reason: INSOMNIA Last Admin: 02/13/18 21:43 Dose: 2 mg Metformin HCl (Glucophage -) 500 mg PO BIDI [facility] Last Admin: 02/15/18 06:11 Dose: 500 mg Multivitamins/Minerals/Vitamin C (Tab-A-Vit -) 1 tab PO DAILY [facility] Last Admin: 02/15/18 10:08 Dose: 1 tab Oxycodone HCl (Roxicodone -) 10 mg PO Q6H PRN PRN Reason: PAIN Last Admin: 02/15/18 10:08 Dose: 10 mg Tamsulosin HCl (Flomax -) 0.4 mg PO DAILY [facility] Last Admin: 02/15/18 10:08 Dose: 0.4 mg - Objective Vital Signs: Vital Signs Temperature 99.3 F 02/15/18 09:00 Pulse Rate 96 H 02/15/18 09:00 Respiratory Rate 18 02/15/18 09:00 Blood Pressure 128/67 02/15/18 09:00 O2 Sat by Pulse Oximetry (%) 93 L 02/15/18 09:00 Constitutional: Yes: No Distress, Calm, Thin Cardiovascular: Yes: Regular Rate and Rhythm Respiratory: Yes: Poor Air Entry, Other (absent on the left side) Gastrointestinal: Yes: Normal Bowel Sounds, Soft Musculoskeletal: Yes: WNL Extremities: Yes: WNL Neurological: Yes: Alert, Oriented Psychiatric: Yes: Alert, Oriented Labs: CBC, BMP 02/15/18 06:15 02/15/18 06:15 Assessment/Plan Problem List - Problems (1) Weakness Code(s): R53.1 - WEAKNESS (2) Hip pain Code(s): M25.559 - PAIN IN UNSPECIFIED HIP (3) Lung cancer Code(s): C34.90 - MALIGNANT NEOPLASM OF UNSP PART OF UNSP BRONCHUS OR LUNG 4 fever plan will start patient on zosyn ct scan will need tapping monitor for fevers rest as per the team
--- NOTE | 2018-02-15 14:21 | CONS ---
DATE OF CONSULTATION: 02/15/2018 PULMONARY CONSULTATION REFERRING PHYSICIAN: Reese Wood M.D. HISTORY OF PRESENT ILLNESS: The patient is a 72-year-old black male with past medical history of diabetes, hypertension, hypertensive cardiovascular disease, PAD, and history of lung CA diagnosed 1-1/2 years ago, treated with chemo and radiation. Also hyperlipidemia and asthma. He was admitted to [facility] secondary to generalized weakness, dizziness, right hip pain and decreased p.o. intake. The patient denies any chest pain, nausea, vomiting, diaphoresis, fever or chills. He states that he has been getting progressively weaker over the past few days, at which time he presented to the emergency room. In the ER, he had chest x-ray performed which revealed evidence of left lower lobe consolidation as well as a effusion. The patient states he had weight loss of approximately 15 pounds over the past couple of months. PAST MEDICAL HISTORY: Again, includes lung CA (unknown tissue type), dementia, hyperlipidemia, asthma, hypertensive cardiovascular disease, PAD, hypertension, diabetes. SOCIAL HISTORY: History of tobacco use. Currently still smoking a few cigarettes daily. Retired construction job cost estimator. REVIEW OF SYSTEMS: No orthopnea. No PND. No shortness of breath. No chest pain. No palpitations. He has a mild cough. No fever. No chills. Positive weight loss. No night sweats. CURRENT MEDICATIONS: Include Flomax, Tylenol, Thorazine, Ativan, Glucophage, Colace, Lipitor, Tab-A-Fiordaliza, Roxicodone and Plavix. PHYSICAL EXAMINATION: General: The patient is a well-developed, well-nourished male, awake, alert, in no acute distress. Vitals: Tmax 99.8. Blood pressure 128/67. Respiratory rate 18. O2 saturation is 93% on room air. HEENT: His head is normocephalic, atraumatic. Neck: Supple. Heart: Regular S1, S2. Chest: Diminished breath sounds on the left. Abdomen: Soft. Bowel sounds are positive. Extremities: No cyanosis or edema. LABORATORY DATA: Sodium 135, BUN 11, creatinine 0.6. WBC is 5.9, hemoglobin 9.2, hematocrit 27.8; platelet count 317,000. DIAGNOSTIC STUDIES: Chest x-ray reveals opacification of the left lung. IMPRESSION: 1. 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 2. Left lower lobe effusion. 3. Weakness. 4. Weight loss secondary to cancer. 5. Hypertensive cardiovascular disease. 6. Peripheral vascular disease. 7. Diabetes. PLAN: Chest CT. Nasal O2 p.r.n. Obtain records from [facility] in [place]. The patient may require thoracentesis, although cannot perform for at least 5 days secondary to the patient currently on Plavix. Inhaled bronchodilators p.r.n. JOSE A ONEAL M.D. [id number]
[2018-02-15] MEDS ORDERED: DEXTROSE 5%-WATER - 50 ML IVPB ONE ×2 (15:00→17:16)
[2018-02-15] MEDS ORDERED: PIPERACILLIN/TAZOBACTAM 3.375 GM VIAL IVPB ONE ×2 (15:00→17:16)
[2018-02-15] MEDS: PIPERACILLIN/TAZOB 3.375 GM 3.375 GM in DEXTROSE 5%-WATER - 50 ML IVPB SCH ×2 (15:09→17:21)
[2018-02-15] MEDS ORDERED: PT OWN MED DRAWER 7, Y5N ONE (17:16)
[2018-02-15] MEDS: LORazepam 1 MG TABLET PO PRN (21:49)
[2018-02-15] MEDS: ATORVASTATIN CA 20 MG TABLET (FP) PO SCH (21:49)
[2018-02-15] MEDS: PROCHLORPERAZINE MALEATE 5 MG TABLET PO PRN (21:50)
--- NOTE | 2018-02-15 22:51 | PN ---
Progress Note, Physician - Current Medication List Current Medications: Active Medications Acetaminophen (Tylenol -) 650 mg PO Q6H PRN PRN Reason: FEVER Last Admin: 02/15/18 21:56 Dose: 650 mg Albuterol/Ipratropium (Duoneb -) 1 amp NEB Q4H PRN PRN Reason: SHORTNESS OF BREATH Atorvastatin Calcium (Lipitor -) 20 mg PO HS [facility] Last Admin: 02/15/18 21:49 Dose: 20 mg Chlorpromazine HCl (Thorazine -) 25 mg PO Q6H PRN PRN Reason: INSOMNIA Last Admin: 02/14/18 22:36 Dose: 25 mg Clopidogrel Bisulfate (Plavix -) 75 mg PO DAILY [facility] Last Admin: 02/15/18 10:08 Dose: 75 mg Docusate Sodium (Colace -) 100 mg PO BID PRN PRN Reason: CONSTIPATION Piperacillin Sod/Tazobactam (Sod 3.375 gm/ Dextrose) 50 mls @ 100 mls/hr IVPB Q8H-IV [facility]; Protocol Last Admin: 02/15/18 17:21 Dose: 100 mls/hr Lorazepam (Ativan -) 2 mg PO HS PRN PRN Reason: INSOMNIA Last Admin: 02/15/18 21:49 Dose: 2 mg Metformin HCl (Glucophage -) 500 mg PO BIDI [facility] Last Admin: 02/15/18 16:04 Dose: Not Given Multivitamins/Minerals/Vitamin C (Tab-A-Vit -) 1 tab PO DAILY [facility] Last Admin: 02/15/18 10:08 Dose: 1 tab Oxycodone HCl (Roxicodone -) 10 mg PO Q6H PRN PRN Reason: PAIN Last Admin: 02/15/18 21:50 Dose: 10 mg Prochlorperazine Maleate (Compazine -) 10 mg PO Q8H PRN PRN Reason: NAUSEA AND VOMITING Last Admin: 02/15/18 21:50 Dose: 10 mg Tamsulosin HCl (Flomax -) 0.4 mg PO DAILY [facility] Last Admin: 02/15/18 10:08 Dose: 0.4 mg - Objective Vital Signs: Vital Signs Temperature 99.2 F 02/15/18 21:48 Pulse Rate 101 H 02/15/18 21:48 Respiratory Rate 18 02/15/18 21:48 Blood Pressure 130/63 02/15/18 21:48 O2 Sat by Pulse Oximetry (%) 93 L 02/15/18 09:00 Labs: CBC, BMP 02/15/18 06:15 02/15/18 06:15
[2018-02-16] MEDS ORDERED: PIPERACILLIN/TAZOBACTAM 3.375 GM VIAL IVPB ONE ×3 (01:41→17:42)
[2018-02-16] MEDS ORDERED: DEXTROSE 5%-WATER - 50 ML IVPB ONE ×3 (01:42→17:42)
[2018-02-16] MEDS: metFORMIN HCL 500 MG TABLET (FP) PO SCH ×2 (10:39→16:47)
--- NOTE | 2018-02-16 10:40 | PN ---
Progress Note (short form) - Note Progress Note: Lying in BED in NAD on RA. Breathing feels OK today. No CP or SOB. Some dry cough. Intake & Output 02/13/18 02/14/18 02/15/18 02/16/18 23:59 23:59 23:59 23:59 Intake Total 200 650 500 Balance 200 650 500 Weight 155 lb 155 lb Last Vital Signs Temp Pulse Resp BP Pulse Ox 98.5 F 90 20 124/88 93 L 02/16/18 09:08 02/16/18 09:08 02/16/18 09:08 02/16/18 09:08 02/15/18 21:00 Active Medications Acetaminophen (Tylenol -) 650 mg PO Q6H PRN PRN Reason: FEVER Last Admin: 02/15/18 21:56 Dose: 650 mg Albuterol/Ipratropium (Duoneb -) 1 amp NEB Q4H PRN PRN Reason: SHORTNESS OF BREATH Last Admin: 02/16/18 07:40 Dose: 1 amp Atorvastatin Calcium (Lipitor -) 20 mg PO HS [facility] Last Admin: 02/15/18 21:49 Dose: 20 mg Clopidogrel Bisulfate (Plavix -) 75 mg PO DAILY [facility] Last Admin: 02/15/18 10:08 Dose: 75 mg Docusate Sodium (Colace -) 100 mg PO BID PRN PRN Reason: CONSTIPATION Piperacillin Sod/Tazobactam (Sod 3.375 gm/ Dextrose) 50 mls @ 100 mls/hr IVPB Q8H-IV [facility]; Protocol Last Admin: 02/15/18 17:21 Dose: 100 mls/hr Lorazepam (Ativan -) 2 mg PO HS PRN PRN Reason: INSOMNIA Last Admin: 02/15/18 21:49 Dose: 2 mg Metformin HCl (Glucophage -) 500 mg PO BIDI [facility] Last Admin: 02/15/18 16:04 Dose: Not Given Multivitamins/Minerals/Vitamin C (Tab-A-Vit -) 1 tab PO DAILY [facility] Last Admin: 02/15/18 10:08 Dose: 1 tab Oxycodone HCl (Roxicodone -) 10 mg PO Q6H PRN PRN Reason: PAIN Last Admin: 02/15/18 21:50 Dose: 10 mg Prochlorperazine Maleate (Compazine -) 10 mg PO Q8H PRN PRN Reason: NAUSEA AND VOMITING Last Admin: 02/15/18 21:50 Dose: 10 mg Tamsulosin HCl (Flomax -) 0.4 mg PO DAILY [facility] Last Admin: 02/15/18 10:08 Dose: 0.4 mg Constitutional: Yes: No Distress, Calm, Thin Cardiovascular: Yes: Regular Rate and Rhythm Respiratory: Yes: Diminished at the left base, few rhonchi Gastrointestinal: Yes: Normal Bowel Sounds, Soft Musculoskeletal: Yes: WNL Extremities: Yes: WNL Neurological: Yes: Alert, Oriented Psychiatric: Yes: Alert, Oriented Labs: Problem List - Problems (1) Pleural effusion Code(s): J90 - PLEURAL EFFUSION, NOT ELSEWHERE CLASSIFIED (2) Lung cancer Code(s): C34.90 - MALIGNANT NEOPLASM OF UNSP PART OF UNSP BRONCHUS OR LUNG (3) Weakness Code(s): R53.1 - WEAKNESS (4) Diabetes Code(s): E11.9 - TYPE 2 DIABETES MELLITUS WITHOUT COMPLICATIONS (5) HTN (hypertension) Code(s): I10 - ESSENTIAL (PRIMARY) HYPERTENSION IMP ADVANCED LUNG CA S/P RT/CHEMO LEFT PLEURAL EFFUSION LIKELY MALIGNANT WEAKNESS/WT LOSS FEVER HCVD PVD HTN DM COPD/ASTHMA ELADIO O2 NEEDED INHALED BRONCHODILATORS PRN ABX PER ID NEED TO OBTAIN OLD RECORDS TO REVIEW INTERVENTIONS: PATIENT REPORTS THAT PLEURAL FLUID WAS WITHDRAWN FROM THE LEFT CHEST BUT IS NOT AWARE OF THE RESULTS. HE APPEARS VERY COMFORTABLE AT THIS TIME. WOULD TRY TO REVIEW OLD RECORDS PRIOR TO ANY INTERVENTION DR DAVALOS
[2018-02-16] MEDS: PIPERACILLIN/TAZOB 3.375 GM 3.375 GM in DEXTROSE 5%-WATER - 50 ML IVPB SCH ×3 (10:43→17:58)
[2018-02-16] MEDS: TAMSULOSIN HCL 0.4 MG CAP.ER.24H (FP) PO SCH (10:43)
[2018-02-16] MEDS: MULTIVITAMINS (DAILY MVI) TABLET (FP) PO SCH (10:43)
[2018-02-16] MEDS: ACETAMINOPHEN 325 MG TABLET (FP) PO PRN ×3 (10:44→22:34)
[2018-02-16] MEDS: oxyCODONE HCL 5 MG TABLET PO PRN ×3 (10:44→22:34)
--- NOTE | 2018-02-16 10:50 | PN ---
Progress Note, Physician History of Present Illness: stable had low grade fever - Current Medication List Current Medications: Active Medications Acetaminophen (Tylenol -) 650 mg PO Q6H PRN PRN Reason: FEVER Last Admin: 02/16/18 10:44 Dose: 650 mg Albuterol/Ipratropium (Duoneb -) 1 amp NEB Q4H PRN PRN Reason: SHORTNESS OF BREATH Last Admin: 02/16/18 07:40 Dose: 1 amp Atorvastatin Calcium (Lipitor -) 20 mg PO HS [facility] Last Admin: 02/15/18 21:49 Dose: 20 mg Clopidogrel Bisulfate (Plavix -) 75 mg PO DAILY [facility] Last Admin: 02/15/18 10:08 Dose: 75 mg Docusate Sodium (Colace -) 100 mg PO BID PRN PRN Reason: CONSTIPATION Piperacillin Sod/Tazobactam (Sod 3.375 gm/ Dextrose) 50 mls @ 100 mls/hr IVPB Q8H-IV [facility]; Protocol Last Admin: 02/16/18 10:43 Dose: 100 mls/hr Lorazepam (Ativan -) 2 mg PO HS PRN PRN Reason: INSOMNIA Last Admin: 02/15/18 21:49 Dose: 2 mg Metformin HCl (Glucophage -) 500 mg PO BIDI [facility] Last Admin: 02/16/18 10:39 Dose: Not Given Multivitamins/Minerals/Vitamin C (Tab-A-Vit -) 1 tab PO DAILY [facility] Last Admin: 02/16/18 10:43 Dose: 1 tab Oxycodone HCl (Roxicodone -) 10 mg PO Q6H PRN PRN Reason: PAIN Last Admin: 02/16/18 10:44 Dose: 10 mg Prochlorperazine Maleate (Compazine -) 10 mg PO Q8H PRN PRN Reason: NAUSEA AND VOMITING Last Admin: 02/15/18 21:50 Dose: 10 mg Tamsulosin HCl (Flomax -) 0.4 mg PO DAILY [facility] Last Admin: 02/16/18 10:43 Dose: 0.4 mg - Objective Vital Signs: Vital Signs Temperature 98.5 F 02/16/18 09:08 Pulse Rate 90 02/16/18 09:08 Respiratory Rate 20 02/16/18 09:08 Blood Pressure 124/88 02/16/18 09:08 O2 Sat by Pulse Oximetry (%) 93 L 02/15/18 21:00 Constitutional: Yes: No Distress, Calm Cardiovascular: Yes: Regular Rate and Rhythm Respiratory: Yes: Regular, Other (decreased air entry in left lower lobe) Gastrointestinal: Yes: Normal Bowel Sounds, Soft Musculoskeletal: Yes: WNL Extremities: Yes: WNL Neurological: Yes: Alert, Oriented Psychiatric: Yes: Alert, Oriented Labs: CBC, BMP 02/15/18 06:15 02/15/18 06:15 - ....Imaging Cat Scan: Report Reviewed, Image Reviewed Assessment/Plan Problem List - Problems (1) Weakness Code(s): R53.1 - WEAKNESS (2) Hip pain Code(s): M25.559 - PAIN IN UNSPECIFIED HIP (3) Lung cancer Code(s): C34.90 - MALIGNANT NEOPLASM OF UNSP PART OF UNSP BRONCHUS OR LUNG 4 fever plan continue zosyn await for all records monitor for fevers rest as per the team ct scan seen and result noted
[2018-02-16] MEDS: CLOPIDOGREL BISULFATE 75 MG TABLET (FP) PO SCH (11:28)
--- NOTE | 2018-02-16 16:17 | PN ---
Progress Note (short form) - Note Progress Note: pt seen and examined walking in the hallway no SOB. participated in PT Records awaited. pt wanted to leave to [place] where all is Physicians are. Constitutional: Yes: Calm, Cachectic Eyes: Yes: Conjunctiva Clear HENT: Yes: Atraumatic, Normocephalic Neck: Yes: Supple, Trachea Midline Cardiovascular: Yes: Regular Rate and Rhythm Respiratory: Yes: Regular, CTA Bilaterally Gastrointestinal: Yes: Normal Bowel Sounds, Soft Musculoskeletal: Yes: WNL Extremities: Yes: WNL Edema: No Temp Pulse Resp BP Pulse Ox 99.8 F H 94 H 18 117/67 93 L 02/15/18 06:10 02/15/18 06:10 02/15/18 06:10 02/15/18 06:10 02/14/18 21:00 CBC, BMP 02/15/18 06:15 02/15/18 06:15 Current Medications Generic Name Dose Route Start Last Admin Trade Name Freq PRN Reason Stop Dose Admin Acetaminophen 650 mg 02/13/18 20:25 02/15/18 02:20 Tylenol - PO 650 mg Q6H PRN Administration FEVER Atorvastatin Calcium 20 mg 02/13/18 22:00 02/14/18 21:23 Lipitor - PO 20 mg HS [facility] Administration Chlorpromazine HCl 25 mg 02/13/18 20:24 02/14/18 22:36 Thorazine - PO 25 mg Q6H PRN Administration INSOMNIA Clopidogrel Bisulfate 75 mg 02/14/18 10:00 02/14/18 10:37 Plavix - PO 75 mg DAILY [facility] Administration Docusate Sodium 100 mg 02/13/18 20:25 Colace - PO BID PRN CONSTIPATION Lorazepam 2 mg 02/13/18 20:38 02/13/18 21:43 Ativan - PO 2 mg HS PRN Administration INSOMNIA Metformin HCl 500 mg 02/14/18 07:00 02/15/18 06:11 Glucophage - PO 500 mg BIDI [facility] Administration Multivitamins/Minerals/Vitamin C 1 tab 02/14/18 10:00 02/14/18 10:37 Tab-A-Vit - PO 1 tab DAILY [facility] Administration Oxycodone HCl 10 mg 02/13/18 20:25 02/15/18 02:21 Roxicodone - PO 10 mg Q6H PRN Administration PAIN Tamsulosin HCl 0.4 mg 02/14/18 10:00 02/14/18 10:37 Flomax - PO 0.4 mg DAILY [facility] Administration s/p PRBCs CT scans reviewed pulm/ID c/s noted Pt wanted to go to his physicians in [place] and he states he is feeling much better now. if remains afebrile and clinically stable, likely should go to his OP oncologist and other physicians care. PO abs per discretion of ID.
[2018-02-16] MEDS ORDERED: LORazepam 1 MG TABLET PO PRN (20:08)
[2018-02-16] MEDS ORDERED: PT OWN MED DRAWER 7, Y5N ONE (21:51)
--- NOTE | 2018-02-16 22:27 | PN ---
Progress Note, Physician - Current Medication List Current Medications: Active Medications Acetaminophen (Tylenol -) 650 mg PO Q6H PRN PRN Reason: FEVER Last Admin: 02/16/18 16:50 Dose: 650 mg Albuterol/Ipratropium (Duoneb -) 1 amp NEB Q4H PRN PRN Reason: SHORTNESS OF BREATH Last Admin: 02/16/18 07:40 Dose: 1 amp Atorvastatin Calcium (Lipitor -) 20 mg PO HS [facility] Last Admin: 02/15/18 21:49 Dose: 20 mg Clopidogrel Bisulfate (Plavix -) 75 mg PO DAILY [facility] Last Admin: 02/15/18 10:08 Dose: 75 mg Docusate Sodium (Colace -) 100 mg PO BID PRN PRN Reason: CONSTIPATION Piperacillin Sod/Tazobactam (Sod 3.375 gm/ Dextrose) 50 mls @ 100 mls/hr IVPB Q8H-IV [facility]; Protocol Last Admin: 02/16/18 17:58 Dose: 100 mls/hr Lorazepam (Ativan -) 2 mg PO HS PRN PRN Reason: INSOMNIA Metformin HCl (Glucophage -) 500 mg PO BIDI [facility] Last Admin: 02/16/18 16:47 Dose: Not Given Multivitamins/Minerals/Vitamin C (Tab-A-Vit -) 1 tab PO DAILY [facility] Last Admin: 02/16/18 10:43 Dose: 1 tab Oxycodone HCl (Roxicodone -) 10 mg PO Q6H PRN PRN Reason: PAIN LEVEL 4 - 6 Prochlorperazine Maleate (Compazine -) 10 mg PO Q8H PRN PRN Reason: NAUSEA AND VOMITING Last Admin: 02/15/18 21:50 Dose: 10 mg Tamsulosin HCl (Flomax -) 0.4 mg PO DAILY [facility] Last Admin: 02/16/18 10:43 Dose: 0.4 mg - Objective Vital Signs: Vital Signs Temperature 98.3 F 02/16/18 20:58 Pulse Rate 91 H 02/16/18 20:58 Respiratory Rate 18 02/16/18 20:58 Blood Pressure 128/73 02/16/18 20:58 O2 Sat by Pulse Oximetry (%) 98 02/16/18 09:00 Labs: CBC, BMP 02/15/18 06:15 02/15/18 06:15
[2018-02-16] MEDS: ATORVASTATIN CA 20 MG TABLET (FP) PO SCH (22:33)
[2018-02-16] MEDS: PROCHLORPERAZINE MALEATE 5 MG TABLET PO PRN (22:37)
[2018-02-17] MEDS ORDERED: DEXTROSE 5%-WATER - 50 ML IVPB ONE ×3 (01:11→16:52)
[2018-02-17] MEDS ORDERED: PIPERACILLIN/TAZOBACTAM 3.375 GM VIAL IVPB ONE ×3 (01:11→16:52)
[2018-02-17] MEDS: PIPERACILLIN/TAZOB 3.375 GM 3.375 GM in DEXTROSE 5%-WATER - 50 ML IVPB SCH ×3 (01:38→17:26)
[2018-02-17] MEDS: metFORMIN HCL 500 MG TABLET (FP) PO SCH ×2 (06:21→16:34)
[2018-02-17] MEDS: oxyCODONE HCL 5 MG TABLET PO PRN ×2 (08:45→16:12)
--- NOTE | 2018-02-17 09:08 | PN ---
Progress Note (short form) - Note Progress Note: Patient seen and examined ROS compla Last Vital Signs Temp Pulse Resp BP Pulse Ox 99.1 F 85 18 108/75 98 02/17/18 05:49 02/17/18 05:49 02/17/18 05:49 02/17/18 05:49 02/16/18 21:00 ins of intermittent headache, no diplopia, no epistaxis, dysphagia, chest pains , some SOB , cough productive of clear and yellow sputum, no nausea, emesis , diarrhea constipation, . no dysuria, hematuria, paresthesias complains of lower back pains and left humeral pains Complains of fatigue, anorexia P.E. HEENT: MARTY, EOM Intact Oropharynx: No thrush, No mucositis, edentulous Cor: RSR, No murmurs, No gallops Lungs: Rales right base ;diminished breath sounds left base Abd: Soft, Normal bowel sounds, No organomegaly Ext:No significant edema, no calf tenderness Skin: No rashes, Integument intact CBC, BMP 02/15/18 06:15 02/15/18 06:15 Current Medications Generic Name Dose Route Start Last Admin Trade Name Freq PRN Reason Stop Dose Admin Acetaminophen 650 mg 02/13/18 20:25 02/16/18 22:34 Tylenol - PO 650 mg Q6H PRN Administration FEVER Albuterol/Ipratropium 1 amp 02/15/18 14:07 02/16/18 07:40 Duoneb - NEB 1 amp Q4H PRN Administration SHORTNESS OF BREATH Atorvastatin Calcium 20 mg 02/13/18 22:00 02/16/18 22:33 Lipitor - PO 20 mg HS TATIANA Administration Clopidogrel Bisulfate 75 mg 02/14/18 10:00 02/15/18 10:08 Plavix - PO 75 mg DAILY TATIANA Administration Docusate Sodium 100 mg 02/13/18 20:25 Colace - PO BID PRN CONSTIPATION Piperacillin Sod/Tazobactam 50 mls @ 100 mls/hr 02/15/18 14:45 02/17/18 01:38 Sod 3.375 gm/ Dextrose IVPB 100 mls/hr Q8H-IV TATIANA Administration Protocol Lorazepam 2 mg 02/16/18 20:08 02/16/18 22:35 Ativan - PO 2 mg HS PRN Administration INSOMNIA Metformin HCl 500 mg 02/14/18 07:00 02/17/18 06:21 Glucophage - PO Not Given BIDI TATIANA Multivitamins/Minerals/Vitamin C 1 tab 02/14/18 10:00 02/16/18 10:43 Tab-A-Vit - PO 1 tab DAILY TATIANA Administration Oxycodone HCl 10 mg 02/16/18 20:07 02/17/18 08:45 Roxicodone - PO 10 mg Q6H PRN Administration PAIN LEVEL 4 - 6 Prochlorperazine Maleate 10 mg 02/15/18 21:11 02/16/18 22:37 Compazine - PO 10 mg Q8H PRN Administration NAUSEA AND VOMITING Tamsulosin HCl 0.4 mg 02/14/18 10:00 02/16/18 10:43 Flomax - PO 0.4 mg DAILY TATIANA Administration Impression: Lung ca followed in [place] Pneumonia Anemia S/P transfusion Lower back and left humeral pains Plan: Check labs Return to oncologists in [place] for f/u For discharge when OKed by ID.
[2018-02-17] MEDS: TAMSULOSIN HCL 0.4 MG CAP.ER.24H (FP) PO SCH (09:52)
[2018-02-17] MEDS: MULTIVITAMINS (DAILY MVI) TABLET (FP) PO SCH (09:52)
[2018-02-17] MEDS: CLOPIDOGREL BISULFATE 75 MG TABLET (FP) PO SCH (10:45)
[2018-02-17 11:03] LABS: EOS % 2.2 % (0-4.5); HEMATOCRIT 27.7 % (35.4-49); LYMPH % 9.1 % (8-40); MCH 26.4 pg (25.7-33.7); MCHC 32.4 g/dl (32.0-35.9); MEAN CELL VOLUME 81.5 fl (80-96); MEAN PLT VOLUME 6.8 fl (7.5-11.1); MONO % 9.8 % (3.8-10.2); NEUT % 77.9 % (42.8-82.8); PLATELET COUNT 315 K/MM3 (134-434); RDW 19.3 % (11.9-15.9); WHITE BLOOD COUNT 6.3 K/mm3 (4.0-10.0)
[2018-02-17 11:26] LABS: ALBUMIN 2.4 g/dl (3.4-5.0); ANION GAP 6 (8-16); BILIRUBIN,TOTAL 0.6 mg/dL (0.2-1.0); BLOOD UREA NITROGEN 12 mg/dL (7-18); CALCIUM 8.7 mg/dL (8.5-10.1); CHLORIDE 97 mmol/L (98-107); CO2 29 mmol/L (21-32); CREATININE 0.7 mg/dL (0.7-1.3); GLUCOSE,RANDOM 142 mg/dL (74-106); MAGNESIUM 1.8 mg/dL (1.8-2.4); POTASSIUM 4.2 mmol/L (3.5-5.1); SGOT/AST 31 U/L (15-37); SGPT/ALT 22 U/L (12-78); SODIUM 132 mmol/L (136-145); TOT PROT 7.1 g/dl (6.4-8.2)
[2018-02-17 11:27] LABS: ALK PHOS 291 U/L (45-117)
--- NOTE | 2018-02-17 13:03 | PN ---
Progress Note, Physician History of Present Illness: still with cough yellowish sputum production - Current Medication List Current Medications: Active Medications Acetaminophen (Tylenol -) 650 mg PO Q6H PRN PRN Reason: FEVER Last Admin: 02/16/18 22:34 Dose: 650 mg Albuterol/Ipratropium (Duoneb -) 1 amp NEB Q4H PRN PRN Reason: SHORTNESS OF BREATH Last Admin: 02/16/18 07:40 Dose: 1 amp Atorvastatin Calcium (Lipitor -) 20 mg PO HS TATIANA Last Admin: 02/16/18 22:33 Dose: 20 mg Clopidogrel Bisulfate (Plavix -) 75 mg PO DAILY TATIANA Last Admin: 02/17/18 10:45 Dose: 75 mg Docusate Sodium (Colace -) 100 mg PO BID PRN PRN Reason: CONSTIPATION Piperacillin Sod/Tazobactam (Sod 3.375 gm/ Dextrose) 50 mls @ 100 mls/hr IVPB Q8H-IV TATIANA; Protocol Last Admin: 02/17/18 09:52 Dose: 100 mls/hr Lorazepam (Ativan -) 2 mg PO HS PRN PRN Reason: INSOMNIA Last Admin: 02/16/18 22:35 Dose: 2 mg Metformin HCl (Glucophage -) 500 mg PO BIDI [facility] Last Admin: 02/17/18 06:21 Dose: Not Given Multivitamins/Minerals/Vitamin C (Tab-A-Vit -) 1 tab PO DAILY [facility] Last Admin: 02/17/18 09:52 Dose: 1 tab Oxycodone HCl (Roxicodone -) 10 mg PO Q6H PRN PRN Reason: PAIN LEVEL 4 - 6 Last Admin: 02/17/18 08:45 Dose: 10 mg Prochlorperazine Maleate (Compazine -) 10 mg PO Q8H PRN PRN Reason: NAUSEA AND VOMITING Last Admin: 02/16/18 22:37 Dose: 10 mg Tamsulosin HCl (Flomax -) 0.4 mg PO DAILY [facility] Last Admin: 02/17/18 09:52 Dose: 0.4 mg - Objective Vital Signs: Vital Signs Temperature 99.7 F H 02/17/18 10:00 Pulse Rate 100 H 02/17/18 10:00 Respiratory Rate 20 02/17/18 10:00 Blood Pressure 157/63 02/17/18 10:00 O2 Sat by Pulse Oximetry (%) 96 02/17/18 09:00 Constitutional: Yes: No Distress, Calm Cardiovascular: Yes: Regular Rate and Rhythm Respiratory: Yes: Poor Air Entry (at the lower lobes) Musculoskeletal: Yes: WNL Extremities: Yes: WNL Neurological: Yes: Alert, Oriented Psychiatric: Yes: Alert, Oriented Labs: CBC, BMP 02/17/18 09:40 02/17/18 09:40 Assessment/Plan Problem List - Problems (1) Weakness Code(s): R53.1 - WEAKNESS (2) Hip pain Code(s): M25.559 - PAIN IN UNSPECIFIED HIP (3) Lung cancer Code(s): C34.90 - MALIGNANT NEOPLASM OF UNSP PART OF UNSP BRONCHUS OR LUNG 4 fever plan continue zosyn await for all records from id point of view patient can be switched to oral augmentin on discharge when ready to discharge can send him on augmentin 875 mg po bid for another week
--- NOTE | 2018-02-17 14:39 | DS ---
Physical Examination Vital Signs: Vital Signs Temperature 98.9 F 02/17/18 14:34 Pulse Rate 90 02/17/18 14:34 Respiratory Rate 20 02/17/18 14:34 Blood Pressure 115/62 02/17/18 14:34 O2 Sat by Pulse Oximetry (%) 96 02/17/18 09:00 Constitutional: Yes: No Distress HENT: Yes: Atraumatic Neck: Yes: Supple Cardiovascular: Yes: Regular Rate and Rhythm Respiratory: Yes: CTA Bilaterally Gastrointestinal: Yes: Normal Bowel Sounds Extremities: Yes: WNL Edema: No Peripheral Pulses WNL: Yes Neurological: Yes: Alert, Oriented Labs: CBC, BMP 02/17/18 09:40 02/17/18 09:40 Discharge Summary Reason For Visit: WEAKNESS,ADENOCARCINOMA OF LUNG STAGE 4 Current Active Problems Diabetes (Acute) HTN (hypertension) (Acute) Lung cancer (Acute) Pleural effusion (Acute) Weakness (Acute) - Instructions Diet, Activity, Other Instructions: follow up with your doctors nextt week Disposition: HOME - Home Medications Comprehensive Discharge Medication List: Ambulatory Orders Atorvastatin Ca [Lipitor] 20 mg PO HS 02/13/18 Chlorpromazine [Thorazine -] 25 mg PO QID PRN 02/13/18 Clopidogrel Bisulfate [Clopidogrel] 75 mg PO DAILY 02/13/18 Lorazepam 2 mg PO HS PRN 02/13/18 Multivitamin [Poly-Vitamin] 1 each PO DAILY 02/13/18 Naproxen [Naprosyn -] 250 mg PO BID 02/13/18 Tamsulosin HCl 0.4 mg PO DAILY 02/13/18 Trazodone HCl 100 mg PO HS 02/13/18 metFORMIN HCL [Metformin HCl] 500 mg PO BID 02/13/18 Amoxicillin/Potassium Clav [Augmentin 875-125 Tablet] 1 each PO BID #10 tablet 02/17/18 tn home wit his doctors in [place]
--- NOTE | 2018-02-17 14:46 | PN ---
Progress Note (short form) - Note Progress Note: PULMONARY RESTING COMFORTABLY ON O2 NO OVERALL CHANGE IN EXAM CHART REVIEWED ANTIBIOTICS/BRONCHODILATORS AGREE WITH PLAN TO CONTINUE FOLLOW UP WITH ONCO IN [place] CONTINUE ORAL ANTIBIOTICS UPON DISCHARGE. [place] ORTA MD
[2018-02-17 20:35] VITALS: BP 145/78; PULSE 87; TEMP 99
== END 2018-02-17 20:43 | disposition home or self-care (01) | DRG 180 ==
LOC: JER 14:10 → JERBED 17:39 → J7W 20:42
PROVIDERS: ADMIT Internal Medicine; ATTEND Internal Medicine
PROC: 30233N1 Transfusion of Nonautologous Red Blood Cells into Peripheral Vein, Percutaneous Approach (ICD-10-PCS; principal; 2018-02-14)
DX: C34.90 Malignant neoplasm of unspecified part of unspecified bronchus or lung (principal); J18.9 Pneumonia, unspecified organism; C78.7 Secondary malignant neoplasm of liver and intrahepatic bile duct; R64 Cachexia; J91.0 Malignant pleural effusion; E11.9 Type 2 diabetes mellitus without complications; I10 Essential (primary) hypertension; I73.9 Peripheral vascular disease, unspecified; E78.5 Hyperlipidemia, unspecified; J45.909 Unspecified asthma, uncomplicated; F03.90 Unspecified dementia, unspecified severity, without behavioral disturbance, psychotic disturbance, mood disturbance, and anxiety; E03.9 Hypothyroidism, unspecified; F17.210 Nicotine dependence, cigarettes, uncomplicated; M25.559 Pain in unspecified hip; R91.8 Other nonspecific abnormal finding of lung field; R62.7 Adult failure to thrive; Z68.23 Body mass index [BMI] 23.0-23.9, adult; R50.9 Fever, unspecified; M54.5 Low back pain; R63.0 Anorexia; B18.2 Chronic viral hepatitis C; D64.9 Anemia, unspecified
CPT/HCPCS: 36415; 36430; 71045-TC-FY; 71260-TC; 73502-TC-RT; 74178-TC; 80053; 81003; 82272; 82550; 82962; 83735; 84443; 84484; 85025; 86850; 86900; 86901; 86922; 93005; 93010; 94640; 97116-GP; 97161-GP; 99285-25; J7620; P9038; P9058

== ENCOUNTER 2018-02-24 13:32 | Observation (INO) | payer OTHER ==
[2018-02-24] MEDS ORDERED: SODIUM CHLORIDE 1,000 ML IV STA (13:48)
--- NOTE | 2018-02-24 14:08 | PDOC ---
History of Present Illness - General Chief Complaint: Hemoptysis Stated Complaint: COUGH UP BLOOD Time Seen by Provider: 02/24/18 13:33 - History of Present Illness Initial Comments: 02/24/18 13:53 Mr. Saxena is a 72 yo male w/ pmh of HTN, HLD, DM, and diffusely metastatic lung cancer (now involving liver and bone) who presents for evaluation of hemoptysis earlier today. Per patient he was in his normal state of health until this morning when he had an episode of coughing. After significant coughing he started to produce blood. He describes this as a "coffee cup" full. He now feels well and has had no further bleeding. The patient denies chest pain, shortness of breath, headache and dizziness. Denies fever, chills, nausea, vomit, diarrhea and constipation. Denies dysuria, frequency, urgency and hematuria. Allergies: NKDA Past History - Past Medical History Allergies/Adverse Reactions: Allergies Allergy/AdvReac Type Severity Reaction Status Date / Time No Known Allergies Allergy Verified 08/29/16 19:33 Home Medications: Ambulatory Orders Atorvastatin Ca [Lipitor] 20 mg PO HS 02/13/18 Chlorpromazine [Thorazine -] 25 mg PO QID PRN 02/13/18 Lorazepam 2 mg PO HS PRN 02/13/18 Tamsulosin HCl 0.4 mg PO DAILY 02/13/18 metFORMIN HCL [Metformin HCl] 500 mg PO BID 02/13/18 Oxycodone HCl 5 mg PO PRN 02/24/18 Umeclidinium [place] [Incruse Ellipta] 62.5 mcg IH DAILY 02/24/18 Anemia: No Asthma: Yes Cancer: Yes (lung) Cardiac Disorders: No COPD: No HTN: Yes Liver Disease: Yes (HEP C) - Suicide/Smoking/Psychosocial Hx Smoking Status: Yes Smoking History: Current some day smoker Have you smoked in the past 12 months: Yes Number of Cigarettes Smoked Daily: 2 If you are a former smoker, when did you quit?: trying to quit w/ patch 3 months ago.. not successful Cigars Per Day: 10 Information on smoking cessation initiated: No 'Breaking Loose' booklet given: 02/13/18 Hx Alcohol Use: No Drug/Substance Use Hx: No Substance Use Type: None Hx Substance Use Treatment: No Review of Systems - Review of Systems Comments:: 02/24/18 15:39 GENERAL/CONSTITUTIONAL: No fever or chills. No weakness. HEAD, EYES, EARS, NOSE AND THROAT: No change in vision. No ear pain or discharge. No sore throat. CARDIOVASCULAR: No chest pain or shortness of breath RESPIRATORY: +Cough today with blood as described. No wheezing, or hemoptysis. GASTROINTESTINAL: No nausea, vomiting, diarrhea or constipation. GENITOURINARY: No dysuria, frequency, or change in urination. MUSCULOSKELETAL: No joint or muscle swelling or pain. No neck or back pain. SKIN: No rash NEUROLOGIC: No headache, vertigo, loss of consciousness, or change in strength/ sensation. ENDOCRINE: No increased thirst. No abnormal weight change HEMATOLOGIC/LYMPHATIC: No anemia, easy bleeding, or history of blood clots. ALLERGIC/IMMUNOLOGIC: No hives or skin allergy. *Physical Exam - Vital Signs Last Vital Signs Temp Pulse Resp BP Pulse Ox 99.3 F 99 H 18 105/63 93 L 02/24/18 13:38 02/24/18 13:38 02/24/18 13:38 02/24/18 13:38 02/24/18 13:38 - Physical Exam Comments: 02/24/18 15:40 GENERAL: Awake, alert, and fully oriented, in no acute distress HEAD: No signs of trauma, normocephalic, atraumatic EYES: PERRLA, EOMI, sclera anicteric, conjunctiva clear ENT: Auricles normal inspection, hearing grossly normal, nares patent, oropharynx clear without exudates. Moist mucosa NECK: Normal ROM, supple, no lymphadenopathy, JVD, or masses LUNGS: +Left sided coarse ronchi at lung bases HEART: Regular rate and rhythm, normal S1 and S2, no murmurs, rubs or gallops, peripheral pulses normal and equal bilaterally. ABDOMEN: Soft, nontender, normoactive bowel sounds. No guarding, no rebound. No masses EXTREMITIES: Normal inspection, Normal range of motion, no edema. No clubbing or cyanosis. NEUROLOGICAL: Cranial nerves II through XII grossly intact. Normal speech, normal gait, no focal sensorimotor deficits SKIN: Warm, Dry, normal turgor, no rashes or lesions noted. ED Treatment Course - LABORATORY CBC & Chemistry Diagram: 02/24/18 14:25 02/24/18 14:25 Medical Decision Making - Medical Decision Making 02/24/18 15:40 Mr. Saxena is a 72 yo male w/ pmh as described who presents for evaluation of hemoptysis episode today. Patient well appearing on arrival with no further coughing / bleeding. Discussed case with Oncologist (Dr. Yo; [phone]) who confirmed patient is DNR/DNI. Patient and family also confirmed. 02/24/18 15:46 Patient labs as below. Patient noted to have elevated troponin to 0.09. Admitting patient for repeat CBC and care pending repeat hemoptysis as well as comfort care. 02/24/18 18:42 Patient admitted to hospitalist for further evaluation. Repeat CBC/troponin ordered. Laboratory Results - last 24 hr 02/24/18 02/24/18 02/24/18 14:25 14:25 14:25 WBC 5.8 RBC 3.31 L Hgb 8.6 L Hct 26.7 L MCV 80.9 MCH 26.0 MCHC 32.2 RDW 18.5 H Plt Count 397 D MPV 6.6 L Absolute Neuts (auto) 4.4 Neutrophils % 76.5 Lymphocytes % 11.8 D Monocytes % 9.1 Eosinophils % 1.6 Basophils % 1.0 Nucleated RBC % 0 PT with INR 14.10 H INR 1.25 H PTT (Actin FS) VBG pH 7.44 H POC VBG pCO2 39.5 POC VBG pO2 39.0 Mixed VBG HCO3 26.6 H Sodium Potassium Chloride Carbon Dioxide Anion Gap BUN Creatinine Creat Clearance w eGFR Random Glucose Calcium Total Bilirubin AST ALT Alkaline Phosphatase Troponin I Total Protein Albumin 02/24/18 02/24/18 02/24/18 14:25 14:25 14:25 WBC RBC Hgb Hct MCV MCH MCHC RDW Plt Count MPV Absolute Neuts (auto) Neutrophils % Lymphocytes % Monocytes % Eosinophils % Basophils % Nucleated RBC % PT with INR INR PTT (Actin FS) 35.8 VBG pH POC VBG pCO2 POC VBG pO2 Mixed VBG HCO3 Sodium 139 Potassium 4.1 Chloride 104 Carbon Dioxide 27 Anion Gap 8 BUN 15 D Creatinine 0.7 Creat Clearance w eGFR > 60 Random Glucose 100 D Calcium 8.5 Total Bilirubin 0.4 D AST 38 H D ALT 29 D Alkaline Phosphatase 316 H Troponin I 0.09 H D Total Protein 7.0 Albumin 2.5 L *DC/Admit/Observation/Transfer Diagnosis at time of Disposition: Hemoptysis Lung cancer Qualifiers: Laterality: unspecified laterality Lung location: unspecified part of lung Qualified Code(s): C34.90 - Malignant neoplasm of unspecified part of unspecified bronchus or lung - Discharge Dispostion Decision to Admit order: Yes - Referrals - Patient Instructions - Post Discharge Activity
[2018-02-24 14:34] LABS: EOS % 1.6 % (0-4.5); HEMATOCRIT 26.7 % (35.4-49); HEMOGLOBIN 8.6 GM/dL (11.7-16.9); LYMPH % 11.8 % (8-40); MCHC 32.2 g/dl (32.0-35.9); MEAN CELL VOLUME 80.9 fl (80-96); MEAN PLT VOLUME 6.6 fl (7.5-11.1); MONO % 9.1 % (3.8-10.2); NEUT % 76.5 % (42.8-82.8); PLATELET COUNT 397 K/MM3 (134-434); RBC 3.31 M/mm3 (4.00-5.60); RDW 18.5 % (11.9-15.9); WHITE BLOOD COUNT 5.8 K/mm3 (4.0-10.0)
[2018-02-24 14:35] LABS: VENOUS PC02 39.5 mmHg (38-52); VENOUS PH 7.44 (7.32-7.42)
[2018-02-24 15:00] LABS: ALBUMIN 2.5 g/dl (3.4-5.0); ALK PHOS 316 U/L (45-117); ANION GAP 8 (8-16); BILIRUBIN,TOTAL 0.4 mg/dL (0.2-1.0); BLOOD UREA NITROGEN 15 mg/dL (7-18); CALCIUM 8.5 mg/dL (8.5-10.1); CHLORIDE 104 mmol/L (98-107); CO2 27 mmol/L (21-32); CREATININE 0.7 mg/dL (0.7-1.3); GLUCOSE,RANDOM 100 mg/dL (74-106); INR 1.25 (0.82-1.09); POTASSIUM 4.1 mmol/L (3.5-5.1); PROTHROMBIN TIME (PATIENT) 14.1 SEC (9.7-13.0); SGOT/AST 38 U/L (15-37); SGPT/ALT 29 U/L (12-78); SODIUM 139 mmol/L (136-145)
--- NOTE | 2018-02-24 16:33 | PDOC ---
Attending Attestation - Resident Resident Name: Yohan Renee - ED Attending Attestation I have performed the following: I have examined & evaluated the patient, The case was reviewed & discussed with the resident, I agree w/resident's findings & plan, Exceptions are as noted - HPI HPI: 02/24/18 18:27 The patient is a 72 year old male brought in by EMS, accompanied by his family, with a significant past medical history of stage IV lung cancer, HTN, HLD, diabetes, hepatitis C, and asthma who presents to the emergency department for evaluation of hemoptysis. The patient reports 1 episode of an acute onset of hemoptysis after waking up this morning. The patient states after a considerable amount of non productive coughing, he started coughing up blood. The patients states the patient had breakfast and was perfectly fine when she left the house. The patient denies hematemesis. As per EMS, the patient coughed up about "400cc" of blood. Per the family, he only had about a coffee cups work of dark red blood after coughing. As per the at bedside, the patient reports being seen at the hospital last week for generalized weakness and dizziness. She also states the patient had chemotherapy for lung cancer 2.5 months ago. Of note, the patients daughter states the patient had a PET scan yesterday with an oncologist (Dr. Yo). Pt is currently on plavix. Per Dr. Yo, pt's cancer appears to have metastasized widely but pt is not aware. Dr. Yo also states that yesterday, the pt and family decided that he would be DNR/DNI. Pt denies cp, sob, headache, f/c, n/v, and any urinary/bowel symptoms. Allergies: NKDA Social History: Current someday smoker (trying to quit. No reported alcohol or drug use) Surgical History: Ear. PCP: Dr. Lobato (Not on staff) Oncologist: Dr. Yo ([phone], [place]) - Physicial Exam PE: 02/24/18 18:31 GENERAL: (+)Pale, chronically ill appearing. ENT: No blood in OP NECK: Normal ROM, supple. LUNGS: (+)Diminished breath sounds at left lung base. No crackles, wheezing, rales HEART: Regular rate and rhythm, normal S1 and S2, no murmurs, rubs or gallops ABDOMEN: Soft, nontender, normoactive bowel sounds. No guarding, no rebound. No masses EXTREMITIES: Normal range of motion, no edema. No clubbing or cyanosis. No cords , erythema, or tenderness BACK: No midline spinal tenderness in cervical/thoracic/lumbar region NEUROLOGICAL: Normal speech, cranial nerves intact, 5/5 strength in all 4 extremities, normal sensation to light touch in all 4 extremities, normal cerebellar exam. SKIN: Warm, Dry, normal turgor, no rashes or lesions noted. - Medical Decision Making 02/24/18 18:34 72yo M with MMP including stage 4 lung ca, DNR/DNI presents to the ED with hemoptysis of unclear amount. Pt initially with slightly low BP 100s SBP, mildly tachy to 99. Given pt with borderline HD instability, we discussed code status again with pt and his family should he begin to have hemoptysis or his vitals do not normalize. Pt and family say that even if he has recurrent hemoptysis, his is DNR/DNI. They are amenable to transfusion and observation overnight if need be.
--- NOTE | 2018-02-24 18:57 | HP ---
CHIEF COMPLAINT: Hemoptysis x 1 episode PCP: Dr. Lobato Oncologist: Dr. Yo, [place], [place] ([phone]) HISTORY OF PRESENT ILLNESS 72 year-old male with a PMH significant for HTN, HLD, PAD, Hep C, metastatic lung cancer, asthma, NIDDM, and dementia. Patient was brought to ED today by his family following one episode this morning of hemoptysis productive of "one cup" of bloody sputum. Patient was diagnosed with lung cancer at [facility] in [place]. He was given a round of chemotherapy ~8 months ago. A PET scan done yesterday shows rapid advancement of disease. The patient is unaware of his prognosis, only his daughter is aware, and she does not want the diagnosis shared with the patient. ER course was notable for: (1) Hgb 8.6 Recent Travel: No PAST MEDICAL HISTORY: Hypertension Hyperlipidemia Peripheral arterial disease Hep C Metastatic lung cancer Asthma NIDDM Dementia PAST SURGICAL HISTORY: Social History: Smoking: current smoker Alcohol: no Drugs: no Family History: Allergies No Known Allergies Allergy (Verified 08/29/16 19:33) HOME MEDICATIONS: Medication Instructions Recorded Atorvastatin Ca [Lipitor] 20 mg PO HS 02/13/18 Chlorpromazine [Thorazine -] 25 mg PO QID PRN 02/13/18 Lorazepam 2 mg PO HS PRN 02/13/18 Tamsulosin HCl 0.4 mg PO DAILY 02/13/18 metFORMIN HCL [Metformin HCl] 500 mg PO BID 02/13/18 Oxycodone HCl 5 mg PO PRN 02/24/18 Umeclidinium [place] [Incruse 62.5 mcg IH DAILY 02/24/18 Ellipta] REVIEW OF SYSTEMS CONSTITUTIONAL: Absent: fever, chills, diaphoresis, generalized weakness, malaise, loss of appetite, weight change HEENT: Absent: rhinorrhea, nasal congestion, throat pain, throat swelling, difficulty swallowing, mouth swelling, ear pain, eye pain, visual changes CARDIOVASCULAR: Absent: chest pain, syncope, palpitations, irregular heart rate, lightheadedness , peripheral edema RESPIRATORY: +hemoptysis x 1 episode Absent: cough, shortness of breath, dyspnea with exertion, orthopnea, wheezing, stridor GASTROINTESTINAL: Absent: abdominal pain, abdominal distension, nausea, vomiting, diarrhea, constipation, melena, hematochezia GENITOURINARY: Absent: dysuria, frequency, urgency, hesitancy, hematuria, flank pain, genital pain MUSCULOSKELETAL: Absent: myalgia, arthralgia, joint swelling, back pain, neck pain SKIN: Absent: rash, itching, pallor HEMATOLOGIC/IMMUNOLOGIC: Absent: easy bleeding, easy bruising, lymphadenopathy, frequent infections ENDOCRINE: Absent: unexplained weight gain, unexplained weight loss, heat intolerance, cold intolerance NEUROLOGIC: Absent: headache, focal weakness or paresthesias, dizziness, unsteady gait, seizure, mental status changes, bladder or bowel incontinence PSYCHIATRIC: Absent: anxiety, depression, suicidal or homicidal ideation, hallucinations. PHYSICAL EXAMINATION Vital Signs - 24 hr 02/24/18 02/24/18 13:38 16:06 Temperature 99.3 F Pulse Rate 99 H Pulse Rate [ 84 Left Radial] Respiratory 18 23 Rate Blood Pressure 105/63 Blood Pressure 123/69 [Left Arm] O2 Sat by Pulse 93 L 97 Oximetry (%) GENERAL: Awake, alert, and fully oriented, in no acute distress. HEAD: Normal with no signs of trauma. EYES: Pupils equal, round and reactive to light, extraocular movements intact, sclera anicteric, conjunctiva clear. No lid lag. EARS, NOSE, THROAT: Ears normal, nares patent, oropharynx clear without exudates. Moist mucous membranes. NECK: Normal range of motion, supple without lymphadenopathy, JVD, or masses. LUNGS: Breath sounds equal, clear to auscultation bilaterally. No wheezes, and no crackles. No accessory muscle use. HEART: Regular rate and rhythm, normal S1 and S2 without murmur, rub or gallop. ABDOMEN: Soft, nontender, not distended, normoactive bowel sounds, no guarding, no rebound, no masses. No hepatomegaly or splenomegaly. MUSCULOSKELETAL: Normal range of motion at all joints. No bony deformities or tenderness. No CVA tenderness. UPPER EXTREMITIES: 2+ pulses, warm, well-perfused. No cyanosis. No clubbing. No peripheral edema. LOWER EXTREMITIES: 2+ pulses, warm, well-perfused. No calf tenderness. No peripheral edema. NEUROLOGICAL: Cranial nerves II-XII intact. Laboratory Results - last 24 hr 02/24/18 02/24/18 02/24/18 14:25 14:25 14:25 WBC 5.8 RBC 3.31 L Hgb 8.6 L Hct 26.7 L MCV 80.9 MCH 26.0 MCHC 32.2 RDW 18.5 H Plt Count 397 D MPV 6.6 L Absolute Neuts (auto) 4.4 Neutrophils % 76.5 Lymphocytes % 11.8 D Monocytes % 9.1 Eosinophils % 1.6 Basophils % 1.0 Nucleated RBC % 0 PT with INR 14.10 H INR 1.25 H PTT (Actin FS) VBG pH 7.44 H POC VBG pCO2 39.5 POC VBG pO2 39.0 Mixed VBG HCO3 26.6 H Sodium Potassium Chloride Carbon Dioxide Anion Gap BUN Creatinine Creat Clearance w eGFR Random Glucose Lactic Acid Calcium Total Bilirubin AST ALT Alkaline Phosphatase Troponin I Total Protein Albumin Blood Type Antibody Screen 02/24/18 02/24/18 02/24/18 14:25 14:25 14:25 WBC RBC Hgb Hct MCV MCH MCHC RDW Plt Count MPV Absolute Neuts (auto) Neutrophils % Lymphocytes % Monocytes % Eosinophils % Basophils % Nucleated RBC % PT with INR INR PTT (Actin FS) 35.8 VBG pH POC VBG pCO2 POC VBG pO2 Mixed VBG HCO3 Sodium 139 Potassium 4.1 Chloride 104 Carbon Dioxide 27 Anion Gap 8 BUN 15 D Creatinine 0.7 Creat Clearance w eGFR > 60 Random Glucose 100 D Lactic Acid Calcium 8.5 Total Bilirubin 0.4 D AST 38 H D ALT 29 D Alkaline Phosphatase 316 H Troponin I 0.09 H D Total Protein 7.0 Albumin 2.5 L Blood Type Antibody Screen 02/24/18 02/24/18 14:25 15:07 WBC RBC Hgb Hct MCV MCH MCHC RDW Plt Count MPV Absolute Neuts (auto) Neutrophils % Lymphocytes % Monocytes % Eosinophils % Basophils % Nucleated RBC % PT with INR INR PTT (Actin FS) VBG pH POC VBG pCO2 POC VBG pO2 Mixed VBG HCO3 Sodium Potassium Chloride Carbon Dioxide Anion Gap BUN Creatinine Creat Clearance w eGFR Random Glucose Lactic Acid 1.5 Calcium Total Bilirubin AST ALT Alkaline Phosphatase Troponin I Total Protein Albumin Blood Type O POSITIVE Antibody Screen Negative ASSESSMENT/PLAN: 72 year-old male with a PMH significant for HTN, HLD, PAD, Hep C, metastatic lung cancer, asthma, NIDDM, and dementia. Placed on observation for episode of hemoptysis Lung cancer with metastases to liver and bone --per patient's oncologist Dr. Yo, PET scan from yesterday shows wide dissemination of disease patient unaware --patient and family have decided on DNR/DNI status Hemoptysis --no further episodes --Hgb 8.6, repeat in am Elevated troponin --troponin 0.09, two pending --ECG not suggestive of acute ischemic event NIDDM --Novolog sliding scale coverage Hypertension --BP stable --not on anti-hypertensives Hyperlipidemia --continue Lipitor Peripheral arterial disease --on Plavix? Need to verify Hepatitis C --no acute issues Asthma --continue Incruse Ellipta; may use home med Dementia --continue thorazine, lorazepam BPH --contiue tamsulosin FEN Fluids: PO intake adequate Electrolytes: replete as indicated Nutrition: diabetic, low sodium full liquids; assess swallowing ability in am DVT prophylaxis: hold chemical prophylaxis due to hemoptysis; SCDs, oob, ambulation Dispo: continues to require observation. DNR/DNI Visit type - Emergency Visit Emergency Visit: Yes ED Registration Date: 02/24/18 Care time: The patient presented to the Emergency Department on the above date and was hospitalized for further evaluation of their emergent condition. - New Patient This patient is new to me today: Yes Date on this admission: 02/25/18 - Critical Care Critical Care patient: No Hospitalist Screening - Colonoscopy Questionnaire Colonoscopy Questionnaire: Colonoscopy Questionnaire - Patient: 50 - 75 years old and never had a screening colonoscopy: Unknown History of colon or rectal polyps, or CA: No History of IBD, Crohn's disease or UC: No History of abdominal radiation therapy as a child: No - Relative: 1 with colon or rectal CA, or polyps at age 60 or younger: Unknown Colon or rectal CA diagnosed at age 45 or younger: Unknown Multiple relatives with colon or rectal CA: Unknown - Outcome: Screening Result: Negative Screen
[2018-02-24 20:53] LABS: HEMATOCRIT 24.8 % (35.4-49); MCH 25.9 pg (25.7-33.7); MCHC 32.1 g/dl (32.0-35.9); MEAN CELL VOLUME 80.5 fl (80-96); MEAN PLT VOLUME 6.5 fl (7.5-11.1); PLATELET COUNT 374 K/MM3 (134-434); RBC 3.09 M/mm3 (4.00-5.60); RDW 18.5 % (11.9-15.9); WHITE BLOOD COUNT 5.5 K/mm3 (4.0-10.0)
[2018-02-24 21:06] LABS: URINE APPEARANCE CLEAR; URINE BILIRUBIN NEGATIVE (<2.0 mg/dL); URINE COLOR YELLOW; URINE GLUCOSE (UA) NEGATIVE (NEGATIVE); URINE KETONE NEGATIVE (NEGATIVE); URINE LEUK ESTERASE NEGATIVE (NEGATIVE); URINE NITRITE NEGATIVE (NEGATIVE); URINE PROTEIN NEGATIVE (NEGATIVE); URINE UROBILINOGEN 4.0 E.U/dl mg/dL (0.2-1.0)
[2018-02-24] MEDS ORDERED: chlorproMAZINE HCL 25 MG TABLET PO PRN (21:22)
[2018-02-24] MEDS ORDERED: LORazepam 0.5 MG TABLET PO PRN (22:00)
[2018-02-24] MEDS: INSULIN SLIDING SCALE (NOVOLOG) 1 VIAL SQ SCH (22:44)
[2018-02-24] MEDS: ATORVASTATIN CA 20 MG TABLET (FP) PO SCH (22:45)
[2018-02-24 23:31] VITALS: BMI 20.6
[2018-02-25] MEDS ORDERED: HEPARIN NA (PORCINE) 5,000 UNITS/ML 1ML VIAL SQ SCH (06:00)
[2018-02-25] MEDS: INSULIN SLIDING SCALE (NOVOLOG) 1 VIAL SQ SCH ×4 (06:00→22:01)
[2018-02-25] MEDS: oxyCODONE HCL 5 MG TABLET PO PRN ×3 (06:03→21:57)
[2018-02-25] MEDS ORDERED: ACETAMINOPHEN 325 MG TABLET (FP) PO ONE ×2 (06:34→20:00)
--- NOTE | 2018-02-25 06:53 | PN ---
Physical Exam: SUBJECTIVE: Patient seen and examined. Complains of pain that extends from left posterior neck to left shoulder to left arm. Cannot characterize. Denies numbness, tingling, paresthesia. Worse with movement. Episode of small amount of bloody sputum at 6am today. OBJECTIVE: Vital Signs Period Temp Pulse Resp BP Sys/Yusuf Pulse Ox Last 24 Hr 98.1 F-99.3 F 72-99 18-23 105-152/62-88 93-97 GENERAL: The patient is awake, alert, and fully oriented. LUNGS: Breath sounds equal, clear to auscultation bilaterally, no wheezes, no crackles, no accessory muscle use. HEART: Regular rate and rhythm, S1, S2, +murmur ABDOMEN: Soft, nontender, nondistended, normoactive bowel sounds, no guarding, no rebound EXTREMITIES: 2+ pulses, warm, well-perfused, no edema. NEUROLOGICAL: Cranial nerves II through XII grossly intact. Normal speech, gait not observed. SKIN: Warm, dry, normal turgor Laboratory Results - last 24 hr 02/24/18 02/24/18 02/24/18 14:25 14:25 14:25 WBC 5.8 RBC 3.31 L Hgb 8.6 L Hct 26.7 L MCV 80.9 MCH 26.0 MCHC 32.2 RDW 18.5 H Plt Count 397 D MPV 6.6 L Absolute Neuts (auto) 4.4 Neutrophils % 76.5 Lymphocytes % 11.8 D Monocytes % 9.1 Eosinophils % 1.6 Basophils % 1.0 Nucleated RBC % 0 PT with INR 14.10 H INR 1.25 H PTT (Actin FS) VBG pH 7.44 H POC VBG pCO2 39.5 POC VBG pO2 39.0 Mixed VBG HCO3 26.6 H Sodium Potassium Chloride Carbon Dioxide Anion Gap BUN Creatinine Creat Clearance w eGFR POC Glucometer Random Glucose Lactic Acid Calcium Total Bilirubin AST ALT Alkaline Phosphatase Troponin I Total Protein Albumin Urine Color Urine Appearance Urine pH Ur Specific [place] Urine Protein Urine Glucose (UA) Urine Ketones Urine Blood Urine Nitrite Urine Bilirubin Urine Urobilinogen Ur Leukocyte Esterase Blood Type Antibody Screen 02/24/18 02/24/18 02/24/18 14:25 14:25 14:25 WBC RBC Hgb Hct MCV MCH MCHC RDW Plt Count MPV Absolute Neuts (auto) Neutrophils % Lymphocytes % Monocytes % Eosinophils % Basophils % Nucleated RBC % PT with INR INR PTT (Actin FS) 35.8 VBG pH POC VBG pCO2 POC VBG pO2 Mixed VBG HCO3 Sodium 139 Potassium 4.1 Chloride 104 Carbon Dioxide 27 Anion Gap 8 BUN 15 D Creatinine 0.7 Creat Clearance w eGFR > 60 POC Glucometer Random Glucose 100 D Lactic Acid Calcium 8.5 Total Bilirubin 0.4 D AST 38 H D ALT 29 D Alkaline Phosphatase 316 H Troponin I 0.09 H D Total Protein 7.0 Albumin 2.5 L Urine Color Urine Appearance Urine pH Ur Specific [place] Urine Protein Urine Glucose (UA) Urine Ketones Urine Blood Urine Nitrite Urine Bilirubin Urine Urobilinogen Ur Leukocyte Esterase Blood Type Antibody Screen 02/24/18 02/24/18 02/24/18 14:25 15:07 20:36 WBC RBC Hgb Hct MCV MCH MCHC RDW Plt Count MPV Absolute Neuts (auto) Neutrophils % Lymphocytes % Monocytes % Eosinophils % Basophils % Nucleated RBC % PT with INR INR PTT (Actin FS) VBG pH POC VBG pCO2 POC VBG pO2 Mixed VBG HCO3 Sodium Potassium Chloride Carbon Dioxide Anion Gap BUN Creatinine Creat Clearance w eGFR POC Glucometer Random Glucose Lactic Acid 1.5 Calcium Total Bilirubin AST ALT Alkaline Phosphatase Troponin I Total Protein Albumin Urine Color Yellow Urine Appearance Clear Urine pH 6.0 Ur Specific [place] 1.017 Urine Protein Negative Urine Glucose (UA) Negative Urine Ketones Negative Urine Blood Negative Urine Nitrite Negative Urine Bilirubin Negative Urine Urobilinogen 4.0 e.u/dl Ur Leukocyte Esterase Negative Blood Type O POSITIVE Antibody Screen Negative 02/24/18 02/24/18 02/24/18 20:45 20:45 22:44 WBC 5.5 RBC 3.09 L Hgb 8.0 L Hct 24.8 L MCV 80.5 MCH 25.9 MCHC 32.1 RDW 18.5 H Plt Count 374 MPV 6.5 L Absolute Neuts (auto) Neutrophils % Lymphocytes % Monocytes % Eosinophils % Basophils % Nucleated RBC % PT with INR INR PTT (Actin FS) VBG pH POC VBG pCO2 POC VBG pO2 Mixed VBG HCO3 Sodium Potassium Chloride Carbon Dioxide Anion Gap BUN Creatinine Creat Clearance w eGFR POC Glucometer 141 Random Glucose Lactic Acid Calcium Total Bilirubin AST ALT Alkaline Phosphatase Troponin I 0.08 H Total Protein Albumin Urine Color Urine Appearance Urine pH Ur Specific [place] Urine Protein Urine Glucose (UA) Urine Ketones Urine Blood Urine Nitrite Urine Bilirubin Urine Urobilinogen Ur Leukocyte Esterase Blood Type Antibody Screen 02/25/18 02/25/18 03:00 05:43 WBC RBC Hgb Hct MCV MCH MCHC RDW Plt Count MPV Absolute Neuts (auto) Neutrophils % Lymphocytes % Monocytes % Eosinophils % Basophils % Nucleated RBC % PT with INR INR PTT (Actin FS) VBG pH POC VBG pCO2 POC VBG pO2 Mixed VBG HCO3 Sodium Potassium Chloride Carbon Dioxide Anion Gap BUN Creatinine Creat Clearance w eGFR POC Glucometer 95 Random Glucose Lactic Acid Calcium Total Bilirubin AST ALT Alkaline Phosphatase Troponin I 0.07 H Total Protein Albumin Urine Color Urine Appearance Urine pH Ur Specific [place] Urine Protein Urine Glucose (UA) Urine Ketones Urine Blood Urine Nitrite Urine Bilirubin Urine Urobilinogen Ur Leukocyte Esterase Blood Type Antibody Screen Current Medications Generic Name Dose Route Start Last Admin Trade Name Freq PRN Reason Stop Dose Admin Atorvastatin Calcium 20 mg 02/24/18 22:00 02/24/18 22:45 Lipitor - PO 20 mg HS [facility] Administration Chlorpromazine HCl 25 mg 02/25/18 16:34 Thorazine - PO Q6H PRN INDIGESTION Insulin Aspart 1 vial 02/24/18 22:00 02/25/18 11:47 Novolog Vial Sliding Scale - SQ Not Given ACHS [facility] Protocol Lorazepam 1 mg 02/25/18 22:00 Ativan - PO HS [facility] Morphine Sulfate 2 mg 02/25/18 16:29 Morphine Sulfate IVPUSH Q6H PRN PAIN LEVEL 6-10 Non-Formulary Medication 62.5 mcg 02/25/18 10:00 Umeclidinium [place] [Incruse Ellipta] IH DAILY TATIANA Oxycodone HCl 5 mg 02/25/18 16:30 Roxicodone - PO Q4H PRN PAIN LEVEL 1-5 Tamsulosin HCl 0.4 mg 02/25/18 08:30 02/25/18 10:08 Flomax - PO 0.4 mg 0830 TATIANA Administration ASSESSMENT/PLAN: 72 year-old male with a PMH significant for HTN, HLD, PAD, Hep C, metastatic lung cancer, asthma, NIDDM, and dementia. Placed on observation for episode of hemoptysis Lung cancer with metastases to liver and bone Hemoptysis --second episode of hemoptysis --Hgb 7.7, transfuse 2U PRBC --pain management Elevated troponin --troponin 0.09-->0.08-->0.07 --ECG not suggestive of acute ischemic event --not indicative of ACS NIDDM --Novolog sliding scale coverage Hypertension --BP stable --not on anti-hypertensives Hyperlipidemia --continue Lipitor Peripheral arterial disease --discussed with daughter; no stents, no angioplasty, she does not know why patient is on plavix, she wants d/c'd Hepatitis C --no acute issues Asthma --continue Incruse Ellipta; may use home med Dementia --continue lorazepam Hiccups --thorazine PRN BPH --contiue tamsulosin FEN Fluids: PO intake adequate Electrolytes: replete as indicated Nutrition: diabetic, low sodium full liquids; assess swallowing ability in am DVT prophylaxis: hold chemical prophylaxis due to hemoptysis; SCDs, oob, ambulation Physical therapy Dispo: continues to require observation. Visit type - Emergency Visit Emergency Visit: Yes ED Registration Date: 02/24/18 Care time: The patient presented to the Emergency Department on the above date and was hospitalized for further evaluation of their emergent condition. - New Patient This patient is new to me today: No - Critical Care Critical Care patient: No
[2018-02-25 07:34] LABS: BASO % 2.2 % (0-2.0); EOS % 3.9 % (0-4.5); HEMOGLOBIN 7.7 GM/dL (11.7-16.9); MCH 26.3 pg (25.7-33.7); MCHC 32.1 g/dl (32.0-35.9); MEAN CELL VOLUME 81.7 fl (80-96); MEAN PLT VOLUME 6.9 fl (7.5-11.1); MONO % 9.9 % (3.8-10.2); PLATELET COUNT 346 K/MM3 (134-434); RBC 2.94 M/mm3 (4.00-5.60); RDW 18.3 % (11.9-15.9); WHITE BLOOD COUNT 5.9 K/mm3 (4.0-10.0)
[2018-02-25 08:58] LABS: ALBUMIN 2.4 g/dl (3.4-5.0); ALK PHOS 293 U/L (45-117); ANION GAP 7 (8-16); BILIRUBIN,TOTAL 0.4 mg/dL (0.2-1.0); BLOOD UREA NITROGEN 11 mg/dL (7-18); CALCIUM 8.3 mg/dL (8.5-10.1); CHLORIDE 108 mmol/L (98-107); CO2 27 mmol/L (21-32); CREATININE 0.5 mg/dL (0.7-1.3); GLUCOSE,RANDOM 72 mg/dL (74-106); MAGNESIUM 1.7 mg/dL (1.8-2.4); POTASSIUM 4.1 mmol/L (3.5-5.1); SGOT/AST 33 U/L (15-37); SGPT/ALT 24 U/L (12-78); SODIUM 142 mmol/L (136-145); TOT PROT 6.5 g/dl (6.4-8.2)
[2018-02-25] MEDS ORDERED: PATIENT'S OWN MEDICATION (NON-FORMULARY) (Umeclidinium Bromide [Incruse Ellipta] 62.5 MCG) IH SCH (10:00)
[2018-02-25] MEDS: TAMSULOSIN HCL 0.4 MG CAP.ER.24H (FP) PO SCH (10:08)
[2018-02-25] MEDS ORDERED: MAGNESIUM OXIDE 400 MG TABLET (FP) PO ONE (10:45)
[2018-02-25] MEDS ORDERED: GABAPENTIN 100 MG CAPSULE (FP) PO ONE (11:00)
[2018-02-25] MEDS ORDERED: chlorproMAZINE HCL 25 MG TABLET PO PRN (16:34)
[2018-02-25] MEDS: MORPHINE SULFATE 2 MG/ML VIAL IVPUSH PRN (17:16)
[2018-02-25] MEDS: ESCITALOPRAM OXALATE 20 MG TABLET (FP) PO SCH (17:56)
[2018-02-25] MEDS ORDERED: PT OWN MED DRAWER 7, Y5N ONE (19:01)
[2018-02-25] MEDS ORDERED: SODIUM CHLORIDE 1,000 ML IV SCH (20:15)
[2018-02-25 21:22] LABS: BASO % 1.9 % (0-2.0); EOS % 2.1 % (0-4.5); HEMATOCRIT 28.1 % (35.4-49); HEMOGLOBIN 9.1 GM/dL (11.7-16.9); MCH 26.4 pg (25.7-33.7); MCHC 32.3 g/dl (32.0-35.9); MEAN CELL VOLUME 81.5 fl (80-96); MEAN PLT VOLUME 6.9 fl (7.5-11.1); MONO % 7.1 % (3.8-10.2); NEUT % 79.9 % (42.8-82.8); PLATELET COUNT 346 K/MM3 (134-434); RBC 3.45 M/mm3 (4.00-5.60); RDW 17.7 % (11.9-15.9); WHITE BLOOD COUNT 5.9 K/mm3 (4.0-10.0)
--- NOTE | 2018-02-25 21:24 | HOSP ---
Subjective - Review of Symptoms Events since last encounter: Hospitalist Encounter Notified by RN that the patient is febrile 102 s/p blood transfusion Transfusion Reaction protocol initiated Assessed patient see PE Physical Examination Vital Signs: Vital Signs Temperature 98 F 02/25/18 13:51 Pulse Rate 74 02/25/18 13:51 Respiratory Rate 18 02/25/18 13:51 Blood Pressure 137/78 02/25/18 13:51 O2 Sat by Pulse Oximetry (%) 97 02/24/18 16:06 Constitutional: Yes: No Distress, Calm, Thin Eyes: Yes: Conjunctiva Clear, EOM Intact, PERRL HENT: Yes: WNL, Atraumatic, Normocephalic Neck: Yes: Tenderness (L- medial aspect) Cardiovascular: Yes: Pulse Irregular, S1, S2, Other (permacath to RCW) Respiratory: Yes: WNL, Regular, CTA Bilaterally, On Nasal O2 Edema: No Peripheral Pulses WNL: Yes Neurological: Yes: WNL, Alert, Oriented, Cran Nerves II-XII Intact ...Motor Strength: WNL Psychiatric: Yes: WNL, Alert, Oriented Labs: Laboratory Results - last 24 hr 02/24/18 02/24/18 02/24/18 14:25 20:45 22:44 WBC RBC Hgb Hct MCV MCH MCHC RDW Plt Count MPV Absolute Neuts (auto) Neutrophils % Lymphocytes % Monocytes % Eosinophils % Basophils % Nucleated RBC % Sodium Potassium Chloride Carbon Dioxide Anion Gap BUN Creatinine Creat Clearance w eGFR POC Glucometer 141 Random Glucose Calcium Magnesium Total Bilirubin AST ALT Alkaline Phosphatase Troponin I 0.08 H Total Protein Albumin Blood Type O POSITIVE Antibody Screen Negative Crossmatch See Detail 02/25/18 02/25/18 02/25/18 03:00 05:43 06:00 WBC 5.9 RBC 2.94 L Hgb 7.7 L Hct 24.0 L MCV 81.7 MCH 26.3 MCHC 32.1 RDW 18.3 H Plt Count 346 MPV 6.9 L Absolute Neuts (auto) 3.8 Neutrophils % 64.0 Lymphocytes % 20.0 D Monocytes % 9.9 Eosinophils % 3.9 D Basophils % 2.2 H Nucleated RBC % 0 Sodium Potassium Chloride Carbon Dioxide Anion Gap BUN Creatinine Creat Clearance w eGFR POC Glucometer 95 Random Glucose Calcium Magnesium Total Bilirubin AST ALT Alkaline Phosphatase Troponin I 0.07 H Total Protein Albumin Blood Type Antibody Screen Crossmatch 02/25/18 02/25/18 02/25/18 06:00 11:29 17:44 WBC RBC Hgb Hct MCV MCH MCHC RDW Plt Count MPV Absolute Neuts (auto) Neutrophils % Lymphocytes % Monocytes % Eosinophils % Basophils % Nucleated RBC % Sodium 142 Potassium 4.1 Chloride 108 H Carbon Dioxide 27 Anion Gap 7 L BUN 11 Creatinine 0.5 L Creat Clearance w eGFR > 60 POC Glucometer 140 145 Random Glucose 72 L D Calcium 8.3 L Magnesium 1.7 L Total Bilirubin 0.4 AST 33 ALT 24 Alkaline Phosphatase 293 H D Troponin I Total Protein 6.5 Albumin 2.4 L Blood Type Antibody Screen Crossmatch Intake & Output 02/22/18 02/23/18 02/24/18 02/25/18 23:59 23:59 23:59 23:59 Intake Total 100 550 Output Total 400 Balance 100 150 Weight 67.16 kg Current Medications Generic Name Dose Route Start Last Admin Trade Name Freq PRN Reason Stop Dose Admin Atorvastatin Calcium 20 mg 02/24/18 22:00 02/24/18 22:45 Lipitor - PO 20 mg HS [facility] Administration Chlorpromazine HCl 25 mg 02/25/18 16:34 Thorazine - PO Q6H PRN INDIGESTION Escitalopram Oxalate 20 mg 02/25/18 17:15 02/25/18 17:56 Lexapro - PO 20 mg DAILY [facility]IANA Administration Sodium Chloride 1,000 mls @ 50 mls/hr 02/25/18 20:15 02/25/18 21:01 Normal Saline - IV 02/26/18 20:09 50 mls/hr ASDIR [facility]ATIANA Administration Insulin Aspart 1 vial 02/24/18 22:00 02/25/18 17:48 Novolog Vial Sliding Scale - SQ Not Given ACHS [facility] Protocol Lorazepam 1 mg 02/25/18 22:00 Ativan - PO HS [facility] Morphine Sulfate 2 mg 02/25/18 16:29 02/25/18 17:16 Morphine Sulfate IVPUSH 2 mg Q6H PRN Administration PAIN LEVEL 6-10 Non-Formulary Medication 62.5 mcg 02/25/18 10:00 Umeclidinium [place] [Incruse Ellipta] IH DAILY TATIANA Oxycodone HCl 5 mg 02/25/18 16:30 Roxicodone - PO Q4H PRN PAIN LEVEL 1-5 Tamsulosin HCl 0.4 mg 02/25/18 08:30 02/25/18 10:08 Flomax - PO 0.4 mg 0830 [facility] Administration Trazodone HCl 50 mg 02/25/18 22:00 Desyrel - PO [facility]AT[facility]NA
[2018-02-25 21:50] LABS: ALBUMIN 2.4 g/dl (3.4-5.0); ANION GAP 8 (8-16); BILIRUBIN,TOTAL 0.5 mg/dL (0.2-1.0); BLOOD UREA NITROGEN 10 mg/dL (7-18); CHLORIDE 102 mmol/L (98-107); CO2 27 mmol/L (21-32); CREATININE 0.7 mg/dL (0.7-1.3); GLUCOSE,RANDOM 159 mg/dL (74-106); POTASSIUM 3.9 mmol/L (3.5-5.1); SGOT/AST 33 U/L (15-37); SGPT/ALT 25 U/L (12-78); SODIUM 137 mmol/L (136-145); TOT PROT 6.7 g/dl (6.4-8.2)
[2018-02-25 21:51] LABS: ALK PHOS 329 U/L (45-117)
[2018-02-25] MEDS: ATORVASTATIN CA 20 MG TABLET (FP) PO SCH (21:52)
[2018-02-25] MEDS: traZODone HCL 50 MG TABLET (FP) PO SCH (21:52)
[2018-02-25] MEDS: LORazepam 0.5 MG TABLET PO SCH (21:53)
[2018-02-25 21:56] LABS: URINE APPEARANCE CLEAR; URINE BILIRUBIN NEGATIVE (<2.0 mg/dL); URINE COLOR YELLOW; URINE GLUCOSE (UA) NEGATIVE (NEGATIVE); URINE KETONE NEGATIVE (NEGATIVE); URINE LEUK ESTERASE NEGATIVE (NEGATIVE); URINE NITRITE NEGATIVE (NEGATIVE); URINE PROTEIN NEGATIVE (NEGATIVE); URINE UROBILINOGEN 4.0 E.U/dl mg/dL (0.2-1.0)
[2018-02-26] MEDS: MORPHINE SULFATE 2 MG/ML VIAL IVPUSH PRN ×2 (05:32→15:51)
[2018-02-26] MEDS: INSULIN SLIDING SCALE (NOVOLOG) 1 VIAL SQ SCH ×4 (06:12→21:34)
[2018-02-26] MEDS: ESCITALOPRAM OXALATE 20 MG TABLET (FP) PO SCH (09:55)
[2018-02-26] MEDS: oxyCODONE HCL 5 MG TABLET PO PRN ×3 (09:55→20:51)
[2018-02-26] MEDS: TAMSULOSIN HCL 0.4 MG CAP.ER.24H (FP) PO SCH (09:55)
--- NOTE | 2018-02-26 11:59 | PN ---
Physical Exam: SUBJECTIVE: Patient seen and examined. Still with left neck, shoulder, and arm pain. Increased demand for pain meds. OBJECTIVE: Vital Signs Period Temp Pulse Resp BP Sys/Yusuf Pulse Ox Last 24 Hr 98 F-102.4 F 70-105 18-20 118-148/55-84 GENERAL: The patient is awake, alert, and fully oriented. LUNGS: Breath sounds equal, clear to auscultation bilaterally, no wheezes, no crackles, no accessory muscle use. HEART: Regular rate and rhythm, S1, S2, +murmur ABDOMEN: Soft, nontender, nondistended, normoactive bowel sounds, no guarding, no rebound EXTREMITIES: 2+ pulses, warm, well-perfused, no edema. NEUROLOGICAL: Cranial nerves II through XII grossly intact. Normal speech, gait not observed. SKIN: Warm, dry, normal turgor Laboratory Results - last 24 hr 02/24/18 02/25/18 02/25/18 14:25 17:44 20:30 WBC RBC Hgb Hct MCV MCH MCHC RDW Plt Count MPV Absolute Neuts (auto) Neutrophils % Lymphocytes % Monocytes % Eosinophils % Basophils % Nucleated RBC % Sodium Potassium Chloride Carbon Dioxide Anion Gap BUN Creatinine Creat Clearance w eGFR POC Glucometer 145 Random Glucose Lactic Acid 1.7 Calcium Total Bilirubin AST ALT Alkaline Phosphatase Total Protein Albumin Urine Color Urine Appearance Urine pH Ur Specific [place] Urine Protein Urine Glucose (UA) Urine Ketones Urine Blood Urine Nitrite Urine Bilirubin Urine Urobilinogen Ur Leukocyte Esterase Blood Type O POSITIVE Antibody Screen Negative Crossmatch See Detail 02/25/18 02/25/18 02/25/18 20:30 20:30 20:30 WBC 5.9 RBC 3.45 L Hgb 9.1 L Hct 28.1 L D MCV 81.5 MCH 26.4 MCHC 32.3 RDW 17.7 H Plt Count 346 MPV 6.9 L Absolute Neuts (auto) 4.7 Neutrophils % 79.9 D Lymphocytes % 9.0 D Monocytes % 7.1 Eosinophils % 2.1 Basophils % 1.9 Nucleated RBC % 0 Sodium 137 Potassium 3.9 Chloride 102 Carbon Dioxide 27 Anion Gap 8 BUN 10 Creatinine 0.7 Creat Clearance w eGFR > 60 POC Glucometer Random Glucose 159 H D Lactic Acid Calcium 8.0 L Total Bilirubin 0.5 AST 33 ALT 25 Alkaline Phosphatase 329 H D Total Protein 6.7 Albumin 2.4 L Urine Color Urine Appearance Urine pH Ur Specific [place] Urine Protein Urine Glucose (UA) Urine Ketones Urine Blood Urine Nitrite Urine Bilirubin Urine Urobilinogen Ur Leukocyte Esterase Blood Type O POSITIVE Antibody Screen Negative Crossmatch 02/25/18 02/25/18 02/26/18 20:30 22:01 05:30 WBC RBC Hgb Hct MCV MCH MCHC RDW Plt Count MPV Absolute Neuts (auto) Neutrophils % Lymphocytes % Monocytes % Eosinophils % Basophils % Nucleated RBC % Sodium Potassium Chloride Carbon Dioxide Anion Gap BUN Creatinine Creat Clearance w eGFR POC Glucometer 137 105 Random Glucose Lactic Acid Calcium Total Bilirubin AST ALT Alkaline Phosphatase Total Protein Albumin Urine Color Yellow Urine Appearance Clear Urine pH 7.0 Ur Specific [place] 1.015 Urine Protein Negative Urine Glucose (UA) Negative Urine Ketones Negative Urine Blood Negative Urine Nitrite Negative Urine Bilirubin Negative Urine Urobilinogen 4.0 e.u/dl Ur Leukocyte Esterase Negative Blood Type Antibody Screen Crossmatch Active Medications Generic Name Dose Route Start Last Admin Trade Name Freq PRN Reason Stop Dose Admin Atorvastatin Calcium 20 mg 02/24/18 22:00 02/25/18 21:52 Lipitor - PO 20 mg HS TATIANA Administration Chlorpromazine HCl 25 mg 02/25/18 16:34 Thorazine - PO Q6H PRN INDIGESTION Escitalopram Oxalate 20 mg 02/25/18 17:15 02/26/18 09:55 Lexapro - PO 20 mg DAILY TATIANA Administration Sodium Chloride 1,000 mls @ 50 mls/hr 02/25/18 20:15 02/25/18 20:30 Normal Saline - IV 02/26/18 20:09 50 mls/hr ASDIR TATIANA Administration Insulin Aspart 1 vial 02/24/18 22:00 02/26/18 06:12 Novolog Vial Sliding Scale - SQ Not Given ACHS [facility] Protocol Lorazepam 1 mg 02/25/18 22:00 02/25/18 21:53 Ativan - PO 1 mg HS TATIANA Administration Morphine Sulfate 2 mg 02/25/18 16:29 02/26/18 05:32 Morphine Sulfate IVPUSH 2 mg Q6H PRN Administration PAIN LEVEL 6-10 Non-Formulary Medication 62.5 mcg 02/25/18 10:00 Umeclidinium [place] [Incruse Ellipta] IH DAILY TATIANA Oxycodone HCl 5 mg 02/25/18 16:30 02/26/18 09:55 Roxicodone - PO 5 mg Q4H PRN Administration PAIN LEVEL 1-5 Tamsulosin HCl 0.4 mg 02/25/18 08:30 02/26/18 09:55 Flomax - PO 0.4 mg 0830 TATIANA Administration Trazodone HCl 50 mg 02/25/18 22:00 02/25/18 21:52 Desyrel - PO 50 mg HS TATIANA Administration ASSESSMENT/PLAN 72 year-old male with a PMH significant for HTN, HLD, PAD, Hep C, metastatic lung cancer, asthma, NIDDM, and dementia. Placed on observation for episode of hemoptysis Lung cancer with metastases to liver and bone Hemoptysis --transfused 1U PRBC last night, spiked fever, quickly resolved, transfusion workup negative --Hgb improved 9.4 (<--<7.7) --pain management Elevated troponin --troponin 0.09-->0.08-->0.07 --ECG not suggestive of acute ischemic event --not indicative of ACS NIDDM --Novolog sliding scale coverage Hypertension --BP stable --not on anti-hypertensives Hyperlipidemia --continue Lipitor Peripheral arterial disease --discussed with daughter; no stents, no angioplasty, she does not know why patient is on plavix, she wants d/c'd Hepatitis C --no acute issues Asthma --continue Incruse Ellipta; may use home med Dementia --continue lorazepam Hiccups --thorazine PRN BPH --contiue tamsulosin Urine contaminant --UA negative, culture with E.coli <100k, no symptoms, will not treat with abx FEN Fluids: PO intake adequate Electrolytes: replete as indicated Nutrition: diabetic, low sodium full liquids; assess swallowing ability in am DVT prophylaxis: hold chemical prophylaxis due to hemoptysis; SCDs, oob, ambulation Physical therapy Dispo: continues to require observation. Visit type - Emergency Visit Emergency Visit: Yes ED Registration Date: 02/24/18 Care time: The patient presented to the Emergency Department on the above date and was hospitalized for further evaluation of their emergent condition. - New Patient This patient is new to me today: No - Critical Care Critical Care patient: No
[2018-02-26 12:37] LABS: BASO % 1.2 % (0-2.0); EOS % 1.9 % (0-4.5); HEMATOCRIT 29.3 % (35.4-49); HEMOGLOBIN 9.4 GM/dL (11.7-16.9); LYMPH % 12.3 % (8-40); MCH 26.2 pg (25.7-33.7); MCHC 32.2 g/dl (32.0-35.9); MEAN CELL VOLUME 81.3 fl (80-96); MEAN PLT VOLUME 7.2 fl (7.5-11.1); MONO % 7.8 % (3.8-10.2); NEUT % 76.8 % (42.8-82.8); PLATELET COUNT 356 K/MM3 (134-434); RDW 17.5 % (11.9-15.9)
[2018-02-26 13:03] LABS: ALBUMIN 2.5 g/dl (3.4-5.0); ANION GAP 7 (8-16); BILIRUBIN,TOTAL 0.5 mg/dL (0.2-1.0); BLOOD UREA NITROGEN 9 mg/dL (7-18); CALCIUM 8.4 mg/dL (8.5-10.1); CHLORIDE 101 mmol/L (98-107); CO2 28 mmol/L (21-32); GLUCOSE,RANDOM 104 mg/dL (74-106); MAGNESIUM 1.6 mg/dL (1.8-2.4); SGOT/AST 38 U/L (15-37); SGPT/ALT 27 U/L (12-78); SODIUM 136 mmol/L (136-145)
[2018-02-26 13:04] LABS: ALK PHOS 313 U/L (45-117)
[2018-02-26 13:07] LABS: CREATININE 0.5 mg/dL (0.7-1.3)
[2018-02-26 13:34] LABS: WHITE BLOOD COUNT 12.5 K/mm3 (4.0-10.0)
[2018-02-26] MEDS: POLYETHYLENE GLYCOL 3350 119 GM BTL PO SCH ×2 (19:01→21:35)
[2018-02-26] MEDS: traZODone HCL 50 MG TABLET (FP) PO SCH (21:33)
[2018-02-26] MEDS: ATORVASTATIN CA 20 MG TABLET (FP) PO SCH (21:33)
[2018-02-26] MEDS ORDERED: DOCUSATE SODIUM 100 MG CAPSULE (FP) PO SCH (22:00)
[2018-02-26] MEDS: LORazepam 0.5 MG TABLET PO SCH (23:00)
[2018-02-27] MEDS: INSULIN SLIDING SCALE (NOVOLOG) 1 VIAL SQ SCH ×2 (06:17→11:13)
[2018-02-27] MEDS ORDERED: PT OWN MED DRAWER 7, Y5N ONE (06:48)
[2018-02-27] MEDS: oxyCODONE HCL 5 MG TABLET PO PRN (06:56)
[2018-02-27] MEDS: TAMSULOSIN HCL 0.4 MG CAP.ER.24H (FP) PO SCH (09:13)
[2018-02-27] MEDS: ESCITALOPRAM OXALATE 20 MG TABLET (FP) PO SCH (09:13)
[2018-02-27] MEDS: POLYETHYLENE GLYCOL 3350 119 GM BTL PO SCH (09:13)
[2018-02-27 11:46] LABS: HEMATOCRIT 27.2 % (35.4-49); HEMOGLOBIN 8.9 GM/dL (11.7-16.9); MCH 26.6 pg (25.7-33.7); MCHC 32.6 g/dl (32.0-35.9); MEAN CELL VOLUME 81.6 fl (80-96); MEAN PLT VOLUME 6.7 fl (7.5-11.1); PLATELET COUNT 313 K/MM3 (134-434); RBC 3.33 M/mm3 (4.00-5.60); RDW 17.9 % (11.9-15.9); WHITE BLOOD COUNT 7.3 K/mm3 (4.0-10.0)
[2018-02-27] MEDS: MORPHINE SULFATE 2 MG/ML VIAL IVPUSH PRN (13:03)
--- NOTE | 2018-02-27 13:38 | DS ---
Physical Exam: SUBJECTIVE: Patient seen and examined OBJECTIVE: Vital Signs Period Temp Pulse Resp BP Sys/Yusuf Pulse Ox Last 24 Hr 98.1 F-99.5 F 75-99 18-20 121-148/66-88 98 PHYSICAL EXAM GENERAL: The patient is awake, alert, and fully oriented, in no acute distress. HEAD: Normal with no signs of trauma. EYES: PERRL, extraocular movements intact, sclera anicteric, conjunctiva clear. ENT: Ears normal, nares patent, oropharynx clear without exudates, moist mucous membranes. NECK: Trachea midline, full range of motion, supple. LUNGS: Breath sounds equal, clear to auscultation bilaterally, no wheezes, no crackles, no accessory muscle use. HEART: Regular rate and rhythm, S1, S2 without murmur, rub or gallop. ABDOMEN: Soft, nontender, nondistended, normoactive bowel sounds, no guarding, no rebound, no hepatosplenomegaly, no masses. EXTREMITIES: 2+ pulses, warm, well-perfused, no edema. NEUROLOGICAL: Cranial nerves II through XII grossly intact. Normal speech, gait not observed. PSYCH: Normal mood, normal affect. SKIN: Warm, dry, normal turgor, no rashes or lesions noted. LABS Laboratory Results - last 24 hr 02/26/18 02/26/18 02/26/18 14:05 17:40 21:34 WBC RBC Hgb Hct MCV MCH MCHC RDW Plt Count MPV POC Glucometer 182 121 154 Complement C3 02/27/18 02/27/18 02/27/18 06:41 09:28 11:11 WBC RBC Hgb Hct MCV MCH MCHC RDW Plt Count MPV POC Glucometer 88 94 Complement C3 Cancelled 02/27/18 11:18 WBC 7.3 RBC 3.33 L Hgb 8.9 L Hct 27.2 L MCV 81.6 MCH 26.6 MCHC 32.6 RDW 17.9 H Plt Count 313 MPV 6.7 L POC Glucometer Complement C3 HOSPITAL COURSE: Date of Admission:02/24/18 Date of Discharge: 02/27/18 Minutes to complete discharge: 35 Discharge Summary Reason For Visit: HEMOPTYSIS Current Active Problems Hemoptysis (Acute) Lung cancer (Acute) Condition: Improved - Instructions Referrals: Dr. Srinath [Other] - 1 Week Disposition: HOME - Home Medications Comprehensive Discharge Medication List: Ambulatory Orders Atorvastatin Ca [Lipitor] 20 mg PO HS 02/13/18 Chlorpromazine [Thorazine -] 25 mg PO QID PRN 02/13/18 Lorazepam 2 mg PO HS PRN 02/13/18 Tamsulosin HCl 0.4 mg PO DAILY 02/13/18 metFORMIN HCL [Metformin HCl] 500 mg PO BID 02/13/18 Oxycodone HCl 5 mg PO PRN 02/24/18 Umeclidinium [place] [Incruse Ellipta] 62.5 mcg IH DAILY 02/24/18 Escitalopram Oxalate [Lexapro -] 20 mg PO DAILY tablet 02/27/18 Polyethylene Glycol 3350 [Miralax 119 gm Btl -] 17 gm PO BID bottle 02/27/18
[2018-02-27 14:37] VITALS: BP 120/60; PULSE 90; TEMP 98.6
--- NOTE | 2018-02-27 22:00 | EKG ---
Test Reason : Blood Pressure : / mmHG Vent. Rate : 082 BPM Atrial Rate : 082 BPM P-R Int : 168 ms QRS Dur : 086 ms QT Int : 414 ms P-R-T Axes : 057 038 047 degrees QTc Int : 483 ms SINUS RHYTHM PROLONGED QT ABNORMAL ECG WHEN COMPARED WITH ECG OF 13-FEB-2018 15:16, LIKELY NO SIGNIFICANT CHANGES Confirmed by AMALIA DEAL MD ([id number]) on 02/27/2018 10:00:02 PM Referred By: Confirmed By:AMALIA DEAL MD
== END 2018-02-27 14:57 | disposition home or self-care (01) ==
LOC: JER 13:32 → INTOOBSV 17:33 → JERBED 17:33 → UNDOADMOB 17:33 → JERBED 21:20 → J7W 22:04 → JERBED 22:04 → J7W 22:04
PROVIDERS: ADMIT Internal Medicine; ATTEND Nurse Practitioner Acute Care
PROC: 3E033NZ Introduction of Analgesics, Hypnotics, Sedatives into Peripheral Vein, Percutaneous Approach (ICD-10-PCS; principal; 2018-02-24)
PROC: 3E0337Z Introduction of Electrolytic and Water Balance Substance into Peripheral Vein, Percutaneous Approach (ICD-10-PCS; 2018-02-24)
PROC: 3E013GC Introduction of Other Therapeutic Substance into Subcutaneous Tissue, Percutaneous Approach (ICD-10-PCS; 2018-02-24)
DX: R04.2 Hemoptysis (principal); R77.8 Other specified abnormalities of plasma proteins; C34.90 Malignant neoplasm of unspecified part of unspecified bronchus or lung; C78.7 Secondary malignant neoplasm of liver and intrahepatic bile duct; C79.51 Secondary malignant neoplasm of bone; I10 Essential (primary) hypertension; I73.9 Peripheral vascular disease, unspecified; F03.90 Unspecified dementia, unspecified severity, without behavioral disturbance, psychotic disturbance, mood disturbance, and anxiety; N40.0 Benign prostatic hyperplasia without lower urinary tract symptoms; E78.5 Hyperlipidemia, unspecified; E11.9 Type 2 diabetes mellitus without complications; J45.909 Unspecified asthma, uncomplicated; B18.2 Chronic viral hepatitis C; F17.210 Nicotine dependence, cigarettes, uncomplicated; Z79.4 Long term (current) use of insulin; Z79.84 Long term (current) use of oral hypoglycemic drugs
CPT/HCPCS: 36415; 36430; 71045-TC-FY; 80053; 81003; 82803; 82962; 83605; 83735; 84484; 85025; 85027; 85610; 85730; 86078; 86850; 86900; 86901; 86922; 87040; 87086; 87186; 93005; 93010; 96361; 96372; 96374; 99283-25; G0378; J1644; J7030; P9038; P9058